=== PATIENT | male | born 1930 | race Caucasian/White ===

== ENCOUNTER 2016-11-27 19:49 | Emergency (ER) | payer MEDICARE, MEDICAID ==
--- NOTE | 2016-11-27 21:31 | Emergency Department Record ---
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 no loc MD Complaint: Fall Onset/Timin -: Minutes(s) Fall From: Standing When Fall Occurred: Just prior to arrival Fall Witnessed: No Place Fall Occurred: Other Loss of Consciousness: None Prolonged Down Time?: No Symptoms Prior to Fall: None Location: Face Context: Tripped/slipped - [place] Coma Scale Eye Response: (4) Open spontaneously Motor Response: (6) Obeys commands Verbal Response: (5) Oriented [place] Total: 15 - Related Data Allergies Allergy/AdvReac Type Severity Reaction Status Date / Time No Known Drug Allergies Allergy Verified 02/03/15 04:26 Travel Screening - Travel/Exposure Within Last 30 Days Have you traveled within the last 30 days?: No - Travel Symptoms Symptom Screening: None Review of Systems Reviewed: No additional complaints except as noted below Constitutional: Reports: As per HPI. Denies: Chills, Fever, Malaise, Night sweats, Weakness, Weight change Eyes: Reports: As per HPI. Denies: Eye discharge, Eye pain, Photophobia, Vision change ENT: Reports: As per HPI. Denies: Congestion, Dental pain, Ear pain, Epistaxis , Hearing loss, Throat pain Respiratory: Reports: As per HPI. Denies: Cough, Dyspnea, Hemoptysis, Stridor, Wheezes Cardiovascular: Reports: As per HPI. Denies: Arrhythmia, Chest pain, Dyspnea on exertion, Edema, Murmurs, Orthopnea, Palpitations, Paroxysmal nocturnal dyspnea, Rheumatic Fever, Syncope Endocrine: Reports: As per HPI. Denies: Fatigue, Heat or cold intolerance, Polydipsia, Polyuria Gastrointestinal: Reports: As per HPI. Denies: Abdominal pain, Constipation, Diarrhea, Hematemesis, Hematochezia, Melena, Nausea, Vomiting Genitourinary: Reports: As per HPI. Denies: Dysuria, Frequency, Hematuria, Incontinence, Retention, Testicular pain, Testicular mass, Urgency Musculoskeletal: Reports: As per HPI. Denies: Arthralgia, Back pain, Gout, Joint swelling, Myalgia, Neck pain Skin: Reports: As per HPI. Denies: Bruising, Change in color, Change in hair/ nails, Lesions, Pruritus, Rash Neurological: Reports: As per HPI. Denies: Abnormal gait, Confusion, Headache, Numbness, Paresthesias, Seizure, Tingling, Tremors, Vertigo, Weakness Psychiatric: Reports: As per HPI. Denies: Anxiety, Auditory hallucinations, Depression, Homicidal thoughts, Suicidal thoughts, Visual hallucinations Hematological/Lymphatic: Reports: As per HPI. Denies: Anemia, Blood Clots, Easy bleeding, Easy bruising, Swollen glands Past Medical History - SOCIAL HISTORY Smoking Status: Never smoker - RESPIRATORY Hx Respiratory Disorders: No - CARDIOVASCULAR Hx Cardio Disorders: No Hx Hypertension: Yes Comment:: afib - NEURO Hx Neuro Disorders: No Hx Parkinson's Disease: Yes Hx Seizures: No - GI Hx GI Disorders: No Hx Reflux: Yes - Hx Genitourinary Disorders: No Hx Bladder Problem: Yes (CA) - ENDOCRINE Hx Endocrine Disorders: No Hx Diabetes: No Hx Thyroid Disease: No - MUSCULOSKELETAL Hx Musculoskeletal Disorders: Yes Hx Arthritis: Yes Comment:: Parkinson's - PSYCH Hx Psych Problems: No - HEMATOLOGY/ONCOLOGY Hx Hematology/Oncology Disorders: Yes Hx Cancer: Yes (bladder) Family Medical History Any Significant Family History?: No Family Hx Comment (NOT TO BE USED IN PLACE OF ITEMS BELOW): unknown Physical Exam - General General Appearance: Alert, Oriented x3, Cooperative, Mild distress - Head Head exam: Normal inspection Head exam detail: Laceration Image of Face/Head: 1 - 3cm lac 2 - hematoma - Eye Eye exam: Normal appearance, PERRL, EOMI Pupils: Normal accommodation - ENT ENT exam: Normal exam, Mucous membranes moist, Normal external ear exam, Normal orophraynx, TM's normal bilaterally Ear exam: Normal external inspection. negative: External canal tenderness Nasal Exam: Normal inspection. negative: Discharge, Sinus tenderness Mouth exam: Normal external inspection, Tongue normal Teeth exam: Normal inspection. negative: Dental caries Throat exam: Normal inspection. negative: Tonsillar erythema, Tonsillar exudate - Neck Neck exam: Normal inspection, Full ROM. negative: Tenderness - Respiratory Respiratory exam: Normal lung sounds bilaterally. negative: Respiratory distress - Cardiovascular Cardiovascular Exam: Regular rate, Normal rhythm, Normal heart sounds - GI/Abdominal GI/Abdominal exam: Soft, Normal bowel sounds. negative: Tenderness - Rectal Rectal exam: Deferred - exam: Deferred - Extremities Extremities exam: Normal inspection, Full ROM, Normal capillary refill. negative: Tenderness - Back Back exam: Reports: Normal inspection, Full ROM. Denies: Muscle spasm, Rash noted, Tenderness - Neurological Neurological exam: Alert, CN II-XII intact, Normal gait, Oriented X3 - Psychiatric Psychiatric exam: Normal affect, Normal mood - Skin Skin exam: Dry, Intact, Normal color, Warm Course Vital Signs 11/27/16 19:53 Temperature 98.4 F Pulse Rate [ 57 L Pulse Ox Probe] Respiratory 20 Rate Blood Pressure 115/85 [Left Arm] Pulse Ox 98 Disposition Disposition: Discharge Clinical Impression: Laceration of face Qualifiers: Encounter type: initial encounter Qualified Code(s): S01.81XA - Laceration without foreign body of other part of head, initial encounter Head injury Qualifiers: Encounter type: initial encounter Qualified Code(s): S09.90XA - Unspecified injury of head, initial encounter Disposition: Home, Self-Care Condition: (1) Good Instructions: Laceration (ED), Head Injury (ED), Care For Your Stitches (ED), Facial Laceration (ED) Additional Instructions: follow up with family doctor. return sooner if worse. sutures out in 8-10 days Forms: Patient Portal Access Quality - Quality Measures Quality Measures: N/A - Blood Pressure Screening Does Patient Have Any of the Following: No Blood Pressure Classification: Pre-Hypertensive BP Reading Systolic Measurement: 115 Diastolic Measurement: 85 Screening for High Blood Pressure: < Pre-Hypertensive BP, F/U Documented > [ G8950] Pre-Hypertensive Follow-up Interventions: Follow-up with rescreen every year. Laceration - Head - Time Out Informed consent:: Informed consent obtained Confirmed first & last name, , procedure, correct site?: Yes - Location Location of laceration:: Upper Laceration located on:: Eye lid Length of laceration:: 3 Length of laceration:: cm - Clean and Prep Laceration cleaning method:: Cleansed, Copious Irrigation Laceration cleaning agent:: Normal Saline - Topical Anesthetic Lidocaine dose:: 2 mL Lidocaine used:: 1% - Procedural Detail Tissue detail:: Torn Foreign body in the wound?: No Undermining was preformed?: No Stent applied?: No [place] applied?: No (6 simple interrupted sutres w 5 ethilon)
--- NOTE | 2016-11-29 13:44 | CT SCAN REPORT ---
EXAM: CT SCAN HEAD WO CONTRAST HISTORY: FALL WITH TRAUMA TO LEFT FACE. TECHNIQUE: Routine noncontrast CT examination of the head. COMPARISON: CT head without contrast dated 02/03/15. FINDINGS: Moderate dilatation of the subarachnoid spaces. The ventricles remain at the upper limits of normal in size. No new area of abnormally increased or decreased attenuation is noted throughout the brain substance. No new abnormal extraaxial fluid collection is seen. No skull fracture is identified. The paranasal sinuses and mastoid air cells are grossly clear, although there is minimal mucosal thickening within the inferior aspects of the frontal sinuses and within the maxillary sinus floors. Post cataract surgery changes are noted bilaterally. The orbits as visualized are otherwise unremarkable. There is soft tissue swelling in the inferolateral left periorbital region adjacent to the anterior aspect of the zygomatic arch. IMPRESSION: 1. NO ACUTE INTRACRANIAL ABNORMALITY NOR SKULL FRACTURE IDENTIFIED. 2. MODERATE GENERALIZED ATROPHY. 3. MILD SOFT TISSUE SWELLING IN THE INFEROLATERAL LEFT PERIORBITAL REGION. 4. REDEMONSTRATION OF SOFT TISSUE SWELLING IN THE RIGHT OCCIPITAL REGION, STABLE. JOB NUMBER: [id number] [facility] [place]
== END 2016-11-27 21:50 | disposition home or self-care (01) ==
LOC: ER 19:49
DX: S01.112A Laceration without foreign body of left eyelid and periocular area, initial encounter (principal); S00.83XA Contusion of other part of head, initial encounter; I48.91 Unspecified atrial fibrillation; I10 Essential (primary) hypertension; G20 Parkinson's disease; W01.0XXA Fall on same level from slipping, tripping and stumbling without subsequent striking against object, initial encounter; Y92.238 Other place in hospital as the place of occurrence of the external cause; Z79.01 Long term (current) use of anticoagulants
CPT/HCPCS: 12013; 70450; 99283; 99284

== ENCOUNTER 2016-12-05 13:48 | Emergency (ER) | payer MEDICARE, MEDICAID ==
--- NOTE | 2016-12-05 14:15 | Emergency Department Record ---
History of Present Illness - General Chief Complaint: Suture removal Stated Complaint: REMOVE STITCHES Time Seen by Provider: 12/05/16 14:15 Mode of arrival: Ambulatory Limitations: No limitations - History of Present Illness Initial Comments: The patient has sutures placed 8 days ago in his L eyebrow. He is now here for suture removal. He denies any problems or issues. Complaint: Suture/staple removal Returns Today for: Staple/stitch removal Symptoms Since Prior Visit: No new symptoms Associated Symptoms: None - Related Data Allergies Allergy/AdvReac Type Severity Reaction Status Date / Time No Known Drug Allergies Allergy Verified 02/03/15 04:26 Travel Screening - Travel/Exposure Within Last 30 Days Have you traveled within the last 30 days?: No - Travel/Exposure Within Last Year Have you traveled outside the [place] in the last year?: No - Additonal Travel Details Have you been exposed to anyone with a communicable illness?: No - Travel Symptoms Symptom Screening: None Past Medical History - SOCIAL HISTORY Smoking Status: Never smoker Alcohol Use: None Drug Use: None - RESPIRATORY Hx Respiratory Disorders: No - CARDIOVASCULAR Hx Cardio Disorders: No Hx Hypertension: Yes Comment:: afib - NEURO Hx Neuro Disorders: No Hx Parkinson's Disease: Yes Hx Seizures: No - GI Hx GI Disorders: No Hx Reflux: Yes - Hx Genitourinary Disorders: No Hx Bladder Problem: Yes (CA) - ENDOCRINE Hx Endocrine Disorders: No Hx Diabetes: No Hx Thyroid Disease: No - MUSCULOSKELETAL Hx Musculoskeletal Disorders: Yes Hx Arthritis: Yes Comment:: Parkinson's - PSYCH Hx Psych Problems: No - HEMATOLOGY/ONCOLOGY Hx Hematology/Oncology Disorders: Yes Hx Cancer: Yes (bladder) Family Medical History Any Significant Family History?: No Family Hx Comment (NOT TO BE USED IN PLACE OF ITEMS BELOW): unknown Physical Exam - General General Appearance: Alert, Cooperative, No acute distress - Head Head exam: Normocephalic. negative: Normal inspection (The L eye brow lac is very well healed. There were no problems removing his 6 stitches.) Course Vital Signs 12/05/16 13:52 Temperature 97.3 F L Pulse Rate 60 Respiratory 16 Rate Blood Pressure 115/72 Pulse Ox 98 Disposition Disposition: Discharge Clinical Impression: Encounter for removal of sutures Disposition: Home, Self-Care Condition: (2) Stable Instructions: Stitches Removal (ED) Additional Instructions: Return to the ER for any problems. Forms: Patient Portal Access Time of Disposition: 14:16 Quality - Quality Measures Quality Measures: N/A - Blood Pressure Screening View Details: Yes Does Patient Have Any of the Following: No Blood Pressure Classification: Normal BP Reading Systolic Measurement: 115 Diastolic Measurement: 72 Screening for High Blood Pressure: < Normal BP, F/U Not Required > [G8748]
== END 2016-12-05 14:21 | disposition home or self-care (01) ==
LOC: ER 13:48
DX: Z48.02 Encounter for removal of sutures (principal)

== ENCOUNTER 2016-12-30 07:30 | Emergency (ER) | payer MEDICARE, MEDICAID ==
--- NOTE | 2016-12-30 08:12 | Emergency Department Record ---
History of Present Illness - General Chief Complaint: Fall Injury Time Seen by Provider: 12/30/16 07:38 Source: Patient, Family Mode of Arrival: Ambulatory - History of Present Illness Initial Comments: pt fell at [employer] 2 days ago onto cement hitting the r side of his face. no loc. he has fallen 3 times since then at home onto carpet. he is having pain in his head, face and r shoulder. Complaint: Fall -: Days(s) Fall From: Standing When Fall Occurred: Recurrent falls Fall Witnessed: Yes, by family Place Fall Occurred: Other Loss of Consciousness: None Prolonged Down Time?: No Symptoms Prior to Fall: None Location: Head, Face Location - Extremities: Right: Shoulder Severity scale (1-10): 4 Quality: Aching Context: History of frequent falls Associated Symptoms: Headache - [place] Coma Scale Eye Response: (4) Open spontaneously Motor Response: (6) Obeys commands Verbal Response: (5) Oriented [place] Total: 15 - Related Data Home Medications Medication Instructions Recorded Confirmed Last Taken Apixaban [Eliquis] 2.5 mg PO BID 12/30/16 12/30/16 12/30/16 Brimonidine Tartrate/Timolol 5 ml OP BID 12/30/16 12/30/16 Unknown [Combigan 0.2%-0.5% Eye Drops] Carbidopa/Levodopa [Sinemet Cr 1 each PO QID 12/30/16 12/30/16 12/30/16 50-200 Tablet] Dorzolamide HCl 10 ml OP BID 12/30/16 12/30/16 Unknown Fesoterodine Fumarate [Toviaz] 4 mg PO QHS 12/30/16 12/30/16 Unknown Fluoxetine HCl 10 mg PO DAILY 12/30/16 12/30/16 Unknown Hydrocodone/Acetaminophen [Scio 1 each PO ASDIR 12/30/16 12/30/16 12/30/16 5-325 Tablet] Latanoprost 0.005% Opth Chelsey 2.5 ml OP DAILY 12/30/16 12/30/16 Unknown [Xalatan] Omeprazole Magnesium [Prilosec Otc] 10 mg PO ASDIR 12/30/16 12/30/16 Unknown Temazepam [Restoril] 15 mg PO QHS 12/30/16 12/30/16 Unknown Tramadol HCl 50 mg PO Q6H 12/30/16 12/30/16 Unknown Previous Rx's Medication Instructions Recorded Metoprolol Tartrate 25 mg PO DAILY #14 tablet 12/30/16 Allergies Allergy/AdvReac Type Severity Reaction Status Date / Time No Known Drug Allergies Allergy Verified 12/30/16 07:52 Review of Systems Reviewed: No additional complaints except as noted below Constitutional: Reports: As per HPI. Denies: Chills, Fever, Malaise, Night sweats, Weakness, Weight change Eyes: Reports: As per HPI. Denies: Eye discharge, Eye pain, Photophobia, Vision change ENT: Reports: As per HPI. Denies: Congestion, Dental pain, Ear pain, Epistaxis , Hearing loss, Throat pain Respiratory: Reports: As per HPI. Denies: Cough, Dyspnea, Hemoptysis, Stridor, Wheezes Cardiovascular: Reports: As per HPI. Denies: Arrhythmia, Chest pain, Dyspnea on exertion, Edema, Murmurs, Orthopnea, Palpitations, Paroxysmal nocturnal dyspnea, Rheumatic Fever, Syncope Endocrine: Reports: As per HPI. Denies: Fatigue, Heat or cold intolerance, Polydipsia, Polyuria Gastrointestinal: Reports: As per HPI. Denies: Abdominal pain, Constipation, Diarrhea, Hematemesis, Hematochezia, Melena, Nausea, Vomiting Genitourinary: Reports: As per HPI. Denies: Dysuria, Frequency, Hematuria, Incontinence, Retention, Testicular pain, Testicular mass, Urgency Musculoskeletal: Reports: As per HPI. Denies: Arthralgia, Back pain, Gout, Joint swelling, Myalgia, Neck pain Skin: Reports: As per HPI. Denies: Bruising, Change in color, Change in hair/ nails, Lesions, Pruritus, Rash Neurological: Reports: As per HPI. Denies: Abnormal gait, Confusion, Headache, Numbness, Paresthesias, Seizure, Tingling, Tremors, Vertigo, Weakness Psychiatric: Reports: As per HPI. Denies: Anxiety, Auditory hallucinations, Depression, Homicidal thoughts, Suicidal thoughts, Visual hallucinations Hematological/Lymphatic: Reports: As per HPI. Denies: Anemia, Blood Clots, Easy bleeding, Easy bruising, Swollen glands Past Medical History - SOCIAL HISTORY Smoking Status: Never smoker Alcohol Use: None Drug Use: None - RESPIRATORY Hx Respiratory Disorders: No - CARDIOVASCULAR Hx Cardio Disorders: No Hx Hypertension: Yes Comment:: afib - NEURO Hx Neuro Disorders: Yes Hx Parkinson's Disease: Yes - GI Hx GI Disorders: No Hx Reflux: Yes - Hx Genitourinary Disorders: Yes Hx Bladder Problem: Yes (CA) - ENDOCRINE Hx Endocrine Disorders: No - MUSCULOSKELETAL Hx Musculoskeletal Disorders: Yes Hx Arthritis: Yes Comment:: Parkinson's - PSYCH Hx Psych Problems: No - HEMATOLOGY/ONCOLOGY Hx Hematology/Oncology Disorders: Yes Hx Cancer: Yes (bladder) Family Medical History Any Significant Family History?: No Family Hx Comment (NOT TO BE USED IN PLACE OF ITEMS BELOW): unknown Physical Exam - General General Appearance: Alert, Oriented x3, Cooperative, Mild distress - Head Head exam: Normal inspection Head exam detail: Contusion, General tenderness, Hematoma Image of Face/Head: 1 - ecchymosis, tenderness - Eye Eye exam: Normal appearance, PERRL, EOMI Pupils: Normal accommodation - ENT ENT exam: Normal exam, Mucous membranes moist, Normal external ear exam, Normal orophraynx Ear exam: Normal external inspection. negative: External canal tenderness Nasal Exam: Normal inspection. negative: Discharge, Sinus tenderness Mouth exam: Normal external inspection, Tongue normal Teeth exam: Other (teeth feel like they dont come together normally). negative : Dental caries Throat exam: Normal inspection. negative: Tonsillar erythema, Tonsillar exudate - Neck Neck exam: Normal inspection, Full ROM. negative: Tenderness - Respiratory Respiratory exam: Normal lung sounds bilaterally. negative: Respiratory distress - Cardiovascular Cardiovascular Exam: Regular rate, Normal rhythm, Normal heart sounds - GI/Abdominal GI/Abdominal exam: Soft, Normal bowel sounds. negative: Tenderness - Rectal Rectal exam: Deferred - exam: Deferred - Extremities Extremities exam: Full ROM, Normal capillary refill, Tenderness - Back Back exam: Reports: Normal inspection, Full ROM. Denies: Muscle spasm, Rash noted, Tenderness - Neurological Neurological exam: Alert, Normal gait, Oriented X3, Reflexes normal - Psychiatric Psychiatric exam: Normal affect, Normal mood - Skin Skin exam: Dry, Intact, Normal color, Warm Course Vital Signs 12/30/16 07:48 Temperature 98.8 F Pulse Rate [ 83 Pulse Ox Probe] Respiratory 24 Rate Blood Pressure 202/104 [Left Arm] Pulse Ox 98 - Reevaluation(s) Reevaluation #1: 12/30/16 10:48 d/w dr durham Disposition Disposition: Discharge Clinical Impression: Closed fracture involving temporomandibular joint Head injury Qualifiers: Encounter type: initial encounter Qualified Code(s): S09.90XA - Unspecified injury of head, initial encounter Fall Qualifiers: Encounter type: initial encounter Qualified Code(s): W19.XXXA - Unspecified fall, initial encounter Zygomatic arch fracture Qualifiers: Encounter type: initial encounter Fracture type: closed Laterality: right Qualified Code(s): S02.40EA - Zygomatic fracture, right side, initial encounter for closed fracture Hypertension Qualifiers: Hypertension type: essential hypertension Qualified Code(s): I10 - Essential ( primary) hypertension Disposition: Home, Self-Care Condition: (1) Good Instructions: Fall Prevention for Older Adults (ED), Jaw Fracture in Adults (ED ), Facial Fracture (ED), Head Injury (ED), Hypertension (ED) Additional Instructions: follow up with dr durham [phone] on . eat nonchew diet only. nothing by mouth after midnight on thursday night. ice to sore areas. sleep elevated. Prescriptions: Metoprolol Tartrate 25 mg PO DAILY #14 tablet Referrals: LADARIUS DURHAM D.D.S. [Dentist] - Forms: Patient Portal Access Quality - Quality Measures Quality Measures: N/A - Blood Pressure Screening Does Patient Have Any of the Following: No Blood Pressure Classification: Hypertensive Reading Systolic Measurement: 183 Diastolic Measurement: 107 Screening for High Blood Pressure: < First Hypertensive BP, F/U Documented > [ G8950] First Hypertensive Follow-up Interventions: Follow-up with rescreen GT 1 day and LT 4 weeks.
[2016-12-30] MEDS ORDERED: METOPROLOL TART 25 MG TABLET PO ONE (08:26)
--- NOTE | 2016-12-31 07:37 | RADIOLOGY REPORT ---
DATE: 12/30/2016 at 8:31 a.m. EXAM: RIGHT SHOULDER. HISTORY: The patient fell two days ago with right shoulder pain. TECHNIQUE: Three views of the right shoulder. COMPARISON: No prior right shoulder series. ENCOUNTER: Initial. FINDINGS: Mild degenerative arthritis at the glenohumeral joint. No fracture or dislocation of the right shoulder identified. IMPRESSION: MILD DEGENERATIVE ARTHRITIS. NO FRACTURE OF THE RIGHT SHOULDER EVIDENT. JOB NUMBER: [id number] [facility]TDD
--- NOTE | 2016-12-31 07:51 | CT SCAN REPORT ---
DATE: 12/30/2016 at 8:17 a.m. EXAM: EMERGENCY CT SCAN OF THE HEAD. HISTORY: The patient fell two days ago with right-sided headache and bruising. Left-hand dominant. TECHNIQUE: Axial CT scan of the head performed without intravenous contrast. COMPARISON: Head CT dated 11/27/2016. ENCOUNTER: Initial. FINDINGS: No definite acute intracranial hemorrhage identified. No focal mass effect or midline shift apparent. No definite acute infarct or intracranial mass lesion seen. Moderate generalized atrophy as before. Mild membrane thickening in the right maxillary antrum. No depressed calvarial fracture is evident. Slight reduction in soft tissue swelling in the scalp of the right occipital region compared with the prior study. The previously seen soft tissue swelling in the scalp and the left periorbital region has also regressed. IMPRESSION: 1. GENERALIZED ATROPHY BEFORE. 2. NO DEFINITE ACUTE INTRACRANIAL HEMORRHAGE OR FOCAL MASS EFFECT EVIDENT. 3. MILD MEMBRANE THICKENING OF THE RIGHT MAXILLARY SINUS. 4. REGRESSION IN PREVIOUSLY SEEN SCALP SOFT TISSUE SWELLING IN THE RIGHT OCCIPITAL REGION AND LEFT PERIORBITAL REGION. JOB NUMBER: [id number] [facility]TDD
--- NOTE | 2016-12-31 08:05 | CT SCAN REPORT ---
DATE: 12/30/2016 at 8:17 a.m. EXAM: EMERGENCY CT SCAN OF THE FACIAL BONES WITHOUT CONTRAST. HISTORY: The patient fell two days ago with right-sided headache and bruising in the right periorbital area. TECHNIQUE: Axial CT scan of the facial bones was performed without intravenous contrast. COMPARISON: No prior facial bone CT. ENCOUNTER: Initial. FINDINGS: There is some mild membrane thickening in the right maxillary sinus and minimal membrane thickening in the left maxillary sinus as well as in the ethmoids. Opacification of some left mastoid air cells is present. The right mastoids appear clear. There does appear to be an undisplaced fracture of the right zygomatic arch. There is questionably an undisplaced fracture posteriorly involving the anterior wall of the right temporomandibular joint in continuity with the zygomatic arch. There is also a cleft in the anterior wall of the maxillary sinus on the right, but with no appreciable air fluid level in the right maxillary sinus this would seem unlikely to be an acute axillary sinus fracture. The pterygoid plates appear intact bilaterally. Degenerative arthritis at the right temporomandibular joint. Advanced degenerative arthritis at the odontoid-anterior arch of C1 articulation and narrowing of the C2-3 interspace with degenerative change. IMPRESSION: 1. UNDISPLACED FRACTURE OF THE RIGHT ZYGOMATIC ARCH. POSSIBLE UNDISPLACED FRACTURE POSTERIORLY INVOLVING THE ANTERIOR WALL OF THE RIGHT TEMPOROMANDIBULAR JOINT. 2. CLEFT IN THE ANTERIOR WALL OF THE MAXILLARY SINUS NEAR SOME MEMBRANE THICKENING WOULD SEEM UNLIKELY TO BE AN ACUTE FRACTURE WITH NO AIR FLUID LEVEL IN THE RIGHT MAXILLARY SINUS, ONLY SOME MINOR MEMBRANE THICKENING. 3. OPACIFICATION OF SOME LEFT MASTOID AIR CELLS. JOB NUMBER: [id number] [facility]
== END 2016-12-30 11:00 | disposition home or self-care (01) ==
LOC: ER 07:30
DX: S02.40EA Zygomatic fracture, right side, initial encounter for closed fracture (principal); S02.69XA Fracture of mandible of other specified site, initial encounter for closed fracture; M25.511 Pain in right shoulder; R51 Headache; I48.91 Unspecified atrial fibrillation; I10 Essential (primary) hypertension; G20 Parkinson's disease; Z79.01 Long term (current) use of anticoagulants; W19.XXXA Unspecified fall, initial encounter; Z91.81 History of falling; Y92.009 Unspecified place in unspecified non-institutional (private) residence as the place of occurrence of the external cause
CPT/HCPCS: 70450; 70486; 99284

== ENCOUNTER 2017-02-22 18:36 | Inpatient (IN) | payer MEDICARE, MEDICAID ==
[2017-02-22] MEDS ORDERED: SODIUM CHLORIDE 0.9% 500 ML IV ONE (19:32)
[2017-02-22 19:38] LABS: URINE APPEARANCE CLEAR; URINE BILIRUBIN NEGATIVE (NEGATIVE); URINE BLOOD NEGATIVE (NEGATIVE); URINE COLOR STRAW; URINE GLUCOSE (UA) NEGATIVE (NEGATIVE); URINE KETONE NEGATIVE (NEGATIVE); URINE LEUKOCYTE ESTERASE NEGATIVE (NEGATIVE); URINE NITRITE NEGATIVE (NEGATIVE); URINE PROTEIN TRACE (NEGATIVE); URINE UROBILINOGEN >=8.0 E.U./dL (0.20 - 1.00)
--- NOTE | 2017-02-22 19:38 | Emergency Department Record ---
History of Present Illness - General Chief complaint: Weakness Stated complaint: WEAKNESS Time Seen by Provider: 02/22/17 19:32 Source: Patient, Family - History of Present Illness Initial comments: Unable to walk any longer with his cane, frequently falling at his home due to weakness and off balance. He has fallen 4-5 times this weekend alone, and he has "no balance, no coordination." Unable to get up even to use bathroom last night. He sees Dr. Bond at [facility], and Dr. Blanton neurologist who says he does not have parkinson's but has had silent strokes and brain atrophy. MD Complaint: Difficulty walking, Generalized weakness - Related Data Home Medications Medication Instructions Recorded Confirmed Last Taken Midodrine HCl 2.5 mg PO BID 02/22/17 02/22/17 02/22/17 Previous Rx's Medication Instructions Recorded Metoprolol Tartrate 25 mg PO DAILY #14 tablet 12/30/16 Allergies Allergy/AdvReac Type Severity Reaction Status Date / Time No Known Drug Allergies Allergy Verified 02/22/17 18:50 Review of Systems Reviewed: No additional complaints except as noted below Constitutional: Reports: As per HPI. Denies: Chills, Fever, Malaise, Night sweats, Weakness, Weight change Eyes: Reports: As per HPI. Denies: Eye discharge, Eye pain, Photophobia, Vision change ENT: Reports: As per HPI. Denies: Congestion, Dental pain, Ear pain, Epistaxis , Hearing loss, Throat pain Respiratory: Reports: As per HPI. Denies: Cough, Dyspnea, Hemoptysis, Stridor, Wheezes Cardiovascular: Reports: As per HPI. Denies: Arrhythmia, Chest pain, Dyspnea on exertion, Edema, Murmurs, Orthopnea, Palpitations, Paroxysmal nocturnal dyspnea, Rheumatic Fever, Syncope Endocrine: Reports: As per HPI. Denies: Fatigue, Heat or cold intolerance, Polydipsia, Polyuria Gastrointestinal: Reports: As per HPI. Denies: Abdominal pain, Constipation, Diarrhea, Hematemesis, Hematochezia, Melena, Nausea, Vomiting Genitourinary: Reports: As per HPI. Denies: Dysuria, Frequency, Hematuria, Incontinence, Retention, Testicular pain, Testicular mass, Urgency Musculoskeletal: Reports: As per HPI. Denies: Arthralgia, Back pain, Gout, Joint swelling, Myalgia, Neck pain Skin: Reports: As per HPI. Denies: Bruising, Change in color, Change in hair/ nails, Lesions, Pruritus, Rash Neurological: Reports: As per HPI. Denies: Abnormal gait, Confusion, Headache, Numbness, Paresthesias, Seizure, Tingling, Tremors, Vertigo, Weakness Psychiatric: Reports: As per HPI. Denies: Anxiety, Auditory hallucinations, Depression, Homicidal thoughts, Suicidal thoughts, Visual hallucinations Hematological/Lymphatic: Reports: As per HPI. Denies: Anemia, Blood Clots, Easy bleeding, Easy bruising, Swollen glands Past Medical History - SOCIAL HISTORY Smoking Status: Never smoker Drug Use: None - RESPIRATORY Hx Respiratory Disorders: No - CARDIOVASCULAR Hx Cardio Disorders: No Hx Hypertension: Yes Comment:: afib - NEURO Hx Neuro Disorders: Yes Hx Parkinson's Disease: Yes - GI Hx GI Disorders: No Hx Reflux: Yes - Hx Genitourinary Disorders: Yes Hx Bladder Problem: Yes (CA) - ENDOCRINE Hx Endocrine Disorders: No - MUSCULOSKELETAL Hx Musculoskeletal Disorders: Yes Hx Arthritis: Yes Comment:: Parkinson's - PSYCH Hx Psych Problems: No - HEMATOLOGY/ONCOLOGY Hx Hematology/Oncology Disorders: Yes Hx Cancer: Yes (bladder) Family Medical History Family Hx Comment (NOT TO BE USED IN PLACE OF ITEMS BELOW): unknown Physical Exam - General General Appearance: Alert, Oriented x3, Cooperative, No acute distress - Head Head exam: Normal inspection, Other (old contusions barely noticeable ) - Eye Eye exam: Normal appearance, PERRL Pupils: Normal accommodation - ENT ENT exam: Normal exam, Mucous membranes moist, Normal external ear exam, Normal orophraynx, TM's normal bilaterally Ear exam: Normal external inspection. negative: External canal tenderness Nasal Exam: Normal inspection. negative: Discharge, Sinus tenderness Mouth exam: Normal external inspection, Tongue normal Teeth exam: Normal inspection. negative: Dental caries Throat exam: Normal inspection. negative: Tonsillar erythema, Tonsillar exudate - Neck Neck exam: Normal inspection, Full ROM. negative: Tenderness - Respiratory Respiratory exam: Normal lung sounds bilaterally. negative: Respiratory distress - Cardiovascular Cardiovascular Exam: Regular rate, Normal rhythm, Normal heart sounds - GI/Abdominal GI/Abdominal exam: Soft, Normal bowel sounds, Other. negative: Tenderness - Rectal Rectal exam: Deferred - exam: Deferred - Extremities Extremities exam: Normal inspection, Full ROM, Normal capillary refill, Pedal edema, Other (No bony tenderness to ribs, chest pelvis, hips, lower extremities) . negative: Calf tenderness, Tenderness - Back Back exam: Reports: Normal inspection, Full ROM. Denies: Muscle spasm, Rash noted, Tenderness - Neurological Neurological exam: Alert, CN II-XII intact, Normal gait, Oriented X3, Reflexes normal. negative: Motor sensory deficit - Psychiatric Psychiatric exam: Normal affect, Normal mood - Skin Skin exam: Abrasion (left anterior shoulder, but ROM intact, without bony tenderness), Dry, Intact, Normal color, Warm Course Vital Signs 02/22/17 19:08 Temperature 98.4 F Pulse Rate [ 64 Pulse Ox Probe] Respiratory 20 Rate Blood Pressure 143/110 [Left Arm] Pulse Ox 99 - Reevaluation(s) Reevaluation #1: Patient was taken to the bathroom and needed full assistance with 2 staff members. He was unable to stand on his own, needed assistance for boh strength and balance. Discussed with patient and family who are in agreement to be admitted for pneumonia, generalized weakness and inability to ambulate. 02/22/17 22:59 02/22/17 23:05 Reevaluation #2: Son reports that he has a new BP medicine called meditrin which he had been taking TID. The BP normalized to 133/65 and with his falling he decreased it to BID which has worked better. The son states he was up all night with his father attempting to get him to the bathroom unsuccessfully multiple times. 02/22/17 23:06 Reevaluation #3: Patient has 3 eye drop medication which he takes for his glaucoma. He was instructed to give his own eye medication while in this facility. 02/22/17 23:08 Medical Decision Making - Management Options MDM Management: Additional Work-up Planned (e.g. ADM/Transfer/OP Study) (Admit to Dr. Bond/Kelsea, P.AEstrella) - Data Complexity MDM Data: Labs Ordered and/or Reviewed, X-Ray Ordered and/or Reviewed (CXR: LLL infiltrate, otherwise negative per radiologist.) - Lab Data Result diagrams: 02/22/17 19:40 02/22/17 19:40 Disposition Disposition: Admit Clinical Impression: Weakness, Physical deconditioning Pneumonia Qualifiers: Pneumonia type: due to unspecified organism Laterality: left Lung location: lower lobe of lung Qualified Code(s): J18.1 - Lobar pneumonia, unspecified organism Disposition: Still a Patient at [facility] Decision to Admit: Admit from ER Decision to Admit Date: 02/22/17 Decision to Admit Time: 23:03 Accepting Physician: Dr. Bond/ Geno Enamorado Time Discussed w/Accepting Physician: 06:30 Condition: (1) Good Forms: Patient Portal Access Quality - Quality Measures Quality Measures: N/A - Blood Pressure Screening Does Patient Have Any of the Following: No, Active Dx of HTN Blood Pressure Classification: Hypertensive Reading Systolic Measurement: 183 Diastolic Measurement: 117 Screening for High Blood Pressure: Patient Exclusion, Hx of HTN [G9744]
[2017-02-22 19:51] LABS: BASO % 0.3 % (0-6); EOS % 0.4 % (0-6); GRAN % 63.2 % (47-80); HEMATOCRIT 43.7 % (42.0-52.0); HEMOGLOBIN 14.9 gm/dl (14.0-18.0); LYMPH % 24.3 % (16-45); MEAN CELL VOLUME 91.4 fl (81-97); MEAN CORPUSCULAR HEMOGLOBIN 31.2 pg (27-33); MEAN CORPUSCULAR HGB CONC 34.1 g/dl (32-36); MEAN PLATELET VOLUME 10.7 fl (7.4-10.4); MONO % 11.8 % (0-9); PLATELET COUNT 163 K/uL (130-400); RED BLOOD COUNT 4.78 M/uL (4.40-5.70); RED CELL DISTRIBUTION WIDTH 14.2 % (11.5-14.5); WHITE BLOOD COUNT W/O DIFF 6.8 K/uL (4.2-12.2)
[2017-02-22 20:02] LABS: BLOOD UREA NITROGEN 18 mg/dL (8-23); CREATININE 0.8 mg/dL (0.7-1.2); EST GLOMERULAR FILTRATION RATE > 60 mL/min; INR 1.2; TOTAL PROTEIN 7.4 g/dL (6.6-8.7)
[2017-02-22 20:04] LABS: GLUCOSE,RANDOM 124 mg/dL (74-109)
[2017-02-22 20:07] LABS: ALB/GLOB RATIO 1.3 (1.1-1.8); ALBUMIN 4.2 g/dL (4.0-5.0); ALKALINE PHOSPHATASE 90 U/L (40-129); ALT/SGPT 8 U/L (<41); AST/SGOT 14 U/L (10.0-50.0)
[2017-02-22] MEDS ORDERED: CEFTRIAXONE SODIUM 1 GM in 0.9 % SODIUM CHLORIDE 100ML 100 ML IVPB ONE (22:55)
[2017-02-22] MEDS ORDERED: AZITHROMYCIN 500 MG TABLET PO ONE (22:55)
[2017-02-22] MEDS ORDERED: HYDROCODONE/APAP 5/325MG TABLET PO SCH (23:15)
[2017-02-22] MEDS ORDERED: OMEPRAZOLE MAGNESIUM 10 MG PO SCH (23:15)
[2017-02-23] MEDS ORDERED: ZINC OXIDE 28.35 GM TUBE TOP PRN (00:56)
[2017-02-23] MEDS ORDERED: AZITHROMYCIN 500 MG TABLET PO SCH (01:00)
[2017-02-23] MEDS ORDERED: HYDROCODONE/APAP 5/325MG TABLET PO SCH (01:15)
[2017-02-23] MEDS: TRAMADOL HCL 50 MG TABLET PO SCH ×3 (01:18→13:14)
--- NOTE | 2017-02-23 07:57 | RADIOLOGY REPORT ---
EXAM: CHEST HISTORY: WEAKNESS. TECHNIQUE: Two views of the chest were obtained. Comparison: 02/05/16. FINDINGS: The heart is not enlarged. No mediastinal mass. Small infiltrate at the left lung base cannot be excluded. The lungs otherwise appear clear. No vascular congestion. IMPRESSION: 1. POSSIBLE SMALL INFILTRATE AT THE LEFT LUNG BASE. 2. OTHERWISE UNREMARKABLE CHEST X-RAY. JOB NUMBER: [id number] MTDD
--- NOTE | 2017-02-23 08:00 | CT SCAN REPORT ---
EXAM: HEAD CT HISTORY: GENERALIZED WEAKNESS AND VERTIGO. TECHNIQUE: Noncontrast head CT was obtained. Comparison: 12/30/16. FINDINGS: There is prominence of the ventricles and subarachnoid spaces compatible with atrophy. There is no mass or mass effect. No intra or extraaxial hemorrhage seen. No CT evidence for large acute territorial infarct. No evidence of a hyperdense MCA sign. No fracture or acute osseous abnormality. The visualized sinuses are clear. IMPRESSION: 1. GENERALIZED ATROPHY SIMILAR TO THE PREVIOUS STUDY. 2. NO MASS, HEMORRHAGE, OR ACUTE INTRACRANIAL PROCESS. JOB NUMBER: [id number] [facility]
--- NOTE | 2017-02-23 09:47 | Rehab Evaluation ---
Patient Information - Patient Information Diagnosis: pneumonia, generalized weakness, inability to ambulate, chronic A-fib Ordered Treatment: OT Evaluate and Treat Status: Initial Evaluation Surgery: No History: Detail (Pt has had several falls over the last month.) Premorbid Status: Detail (Pt lives with and adult son in a 2 story house with basement. He reports 8-10 steps and víctor handrailings at the entrance from the basement garage and 3 steps at front entrance which is a long distance from the driveway. His bedroom and bathroom are on the second floor. In the upper level bathroom is a walk in shower with grab bar and standard height toilet with grab bar, on the lower level is a tub/shower combination. His completes laundry and they have a housekeeper/laundry assistant 1 x per week, son completes all driving and assists pt with showering, dressing, self care activities. He has a shower seat and wheeled walker but usually walks without an assistive device. ) Social History: Detail (Supportive and son.) Precautions: [place], Fall - Time With Patient Total Time Spent With Patient (Min): 50 Treatment Procedures: Detail (OT low complexity) Subjective Information - Subjective Information Per Patient, Other (Son and present for part of evaluation.) Objective Data - Pain Pain Present: No - Mental Status Patient Orientation: Oriented x3 - Visual Perception Appears within normal limits for therapeutic activities (Pt wears glasses.) - ROM Not within normal limits (Víctor shoulder flexion limited to approx. 80 degrees, víctor elbow, wrist and hand AROM functional.) - Strength/Tone Not within normal limits (Víctor shoulder strength 3+/5 within AROM limitations, víctor elbow strength 4/5, víctor fitness and wellness coordinator 4/5) - Coordination Appears within normal limits for therapeutic activities - Bed Mobility Dependent (Mod assist x 2 for sit to supine) - Transfers Needs Assist (Mod assist x 2 for sit to stand from recliner chair and commode seat.) - Balance Balance Sitting: Good Balance Standing: Poor - Sensation Intact - Gait Detail (Pt able to amb short distances in room with 2 wheeled walker and min assist x 1-2 to maintain balance and manuever walker.) - ADL's/IADL's Detail (Total assist for toileting, doffing/donning briefs and slippers. Other ADLs not formally assessed due to patient fatigue.) Therapy Assessment - Therapy Assessment Detail (Pt presents with significant impairment in mobility, self cares, endurance and UE strength.) Problem List - Problem List Occupational Therapy Problem List: Detail (1. Decreased Ind with functional mobility needed for safe ADLs. 2. Decreased UE function needed for safe and Ind ADLs/functional mobility. 3. Decreased Ind with self care activities.) Goals - Goals Occupational Therapy Goals: 1. Pt will be Ind with sit to stand from chair, edge of bed and commode heights. 2. Pt will be Ind with grooming/hygiene activities. 3. Pt will require min assist or better for showering in sitting. Prognosis - Prognosis Moderate Plan - Plan Occupational Therapy Plan: OT 2-4 days per week to address self cares, functional mobility, UE function and overall endurance to allow return home with family.
[2017-02-23] MEDS: COMBIGAN OPTH SCH ×2 (10:15→23:26)
[2017-02-23] MEDS: APIXABAN 2.5MG TABLET PO SCH ×2 (10:16→23:25)
[2017-02-23] MEDS: METOPROLOL TART 50 MG TABLET PO SCH (10:16)
[2017-02-23] MEDS: FLUOXETINE HCL 10 MG CAPSULE PO SCH (10:17)
[2017-02-23] MEDS: DORZOLAMIDE 2% OPTH SCH ×2 (10:20→23:25)
[2017-02-23] MEDS: OPTH OPTH SCH ×3 (10:20→23:31)
[2017-02-23] MEDS: BRIMONIDINE OPTH OPTH SCH ×2 (10:30→23:25)
--- NOTE | 2017-02-23 11:36 | Rehab Evaluation ---
Patient Information - Patient Information Diagnosis: pneumonia, generalized weakness, inability to ambulate, chronic A-fib Ordered Treatment: PT Evaluate and Treat Status: Initial Evaluation Surgery: No History: Detail (Pt has had several falls over the last month.) Premorbid Status: Detail (Pt lives with and adult son in a 2 story house with basement. He reports 8-10 steps and bill handrailings at the entrance from the garage. Another enterance has less steps but is a long walk from the garage. The patient's bedroom is on the second floor, with a bathroom with a walk in shower with grab bars and a tub seat that is available but not usually used. The upstairs bathroom also has a standard toilet and grab bars. The patient's was completing laundry and cooking and a historiography teacher was completing other chores once a week. The patient's son stated he was assisting the patient with bed mobility, transfers and ambulation. The patient's son also reports that the patient's home is not acessible to a walker.) Precautions: [place], Fall - Time With Patient Total Time Spent With Patient (Min): 30 Treatment Procedures: Detail (Initial Evaluation) Subjective Information - Subjective Information Per Patient (The patient complained of fatigue. The patient had no complaints of pain.) Objective Data - Mental Status Patient Orientation: Oriented x3 (The patient at times has difficulty following simple commands concerning moving.) - ROM Within normal limits (The patient's LE AROM is WFL.) - Strength/Tone Not within normal limits (The patient had difficulty understanding the use of resistance for strength testing. LE strength was generally 4 to 4-/5.) - Bed Mobility Needs Assist (The patient required maximal PA of 1 to lift LE's into bed, moderate PA of 1 for upper body.) - Transfers Needs Assist (moderate PA of 1 with sit to stand.) - Balance Balance Sitting: Fair (The patient was able to sit unsupported.) Balance Standing: Poor (The patient required support to stand. The patient often leans back with sit to stand.) - Gait Detail (The patient ambulated with hand holds of 2, 11 feet x 1 and with 2 wheeled walker 11 feet x 1 with CG of 1. The patient requires maximal verbal cues for turning legs and backing up. The patient's gait pattern was characterized by small shuffling steps and flexed posturing of hips, knees and trunk.) Therapy Assessment - Therapy Assessment Detail (The patient required moderate assistance with mobility and decreased balance. The patient had some difficulty following simple commands. Feel the patient would benefit from the use of a walker for mobility. ( The patient was not using an assistive device at home). The patient would benefit from short term PT at a subacute rehab to improve functional level. PT is concerned with patient returning to his home environment due to inacessibility of walker and numerous stairs. If patient is not returning home a [facility] care facility where the patient can recieve OT/PT would be a good option.) Problem List - Problem List Physical Therapy Problem List: Detail (1) Assistance with bed mobility and transfers 2) Assistance with ambulation and numerous gait deviations 3) Decreased balance in standing 4) Decreased ability to complete prolonged physical activity) Goals - Goals Physical Therapy Goals: 1) The patient will ambulate with assistive device with CG household distances (30 to 50 feet). 2) Evaluate the patient using objective balance test. 3) The patient will complete bed mobility with minimal to moderate assist. 4) The patient will acheive sit to stand transfer with CG/ supervision for safety. 5) The patient will tolerate 30 minutes of physical activity Prognosis - Prognosis Moderate Plan - Plan Physical Therapy Plan: PT daily for gait training, transfer training, bed mobility, LE strengthening and balance exercises.
[2017-02-23] MEDS: ACETAMINOPHEN 500 MG TABLET PO PRN (15:20)
[2017-02-23] MEDS ORDERED: HYDROCODONE/APAP 5/325MG TABLET PO PRN ×3 (15:27→18:55)
[2017-02-23 16:37] LABS: BASO % 0.1 % (0-6); EOS % 1.1 % (0-6); GRAN % 66.6 % (47-80); HEMATOCRIT 42.7 % (42.0-52.0); HEMOGLOBIN 14.5 gm/dl (14.0-18.0); LYMPH % 20.8 % (16-45); MEAN CELL VOLUME 91.4 fl (81-97); MEAN PLATELET VOLUME 10.3 fl (7.4-10.4); MONO % 11.4 % (0-9); PLATELET COUNT 171 K/uL (130-400); RED BLOOD COUNT 4.67 M/uL (4.40-5.70); RED CELL DISTRIBUTION WIDTH 14.2 % (11.5-14.5)
[2017-02-23 16:50] LABS: BLOOD UREA NITROGEN 24 mg/dL (8-23); CREATININE 0.8 mg/dL (0.7-1.2); EST GLOMERULAR FILTRATION RATE > 60 mL/min
[2017-02-23 16:51] LABS: TOTAL PROTEIN 7.1 g/dL (6.6-8.7)
[2017-02-23 16:53] LABS: GLUCOSE,RANDOM 153 mg/dL (74-109)
[2017-02-23 16:55] LABS: ALT/SGPT 8 U/L (<41)
[2017-02-23 16:56] LABS: ALB/GLOB RATIO 1.2 (1.1-1.8); ALBUMIN 3.9 g/dL (4.0-5.0); ALKALINE PHOSPHATASE 87 U/L (40-129); AST/SGOT 12 U/L (10.0-50.0)
--- NOTE | 2017-02-23 17:08 | History & Physical ---
History of Present Illness - Date of Service Date of Service for History & Physical: 02/23/17 - History of Present Illness Admitting Diagnosis: Pneumonia, left lower lobe; generalized weakness, inability to ambulate; chronic atrial fibrillation History of Present Illness: 86yo male with CC of generalized weakness. He has history of chronic afib, HTN, hx of CVA, GERD, IBS, bladder cancer in remission, depression. Patient presented to the ED with inability to ambulate alone and frequently falling at his home due to weakness and balance issues. He has fallen 4-5 times this weekend alone, and he has "no balance, no coordination." Unable to get up even to use bathroom last night. This has been going on for months but got progressively worse this weekend. Son is his home care companion so decided to bring him in to the ED While in the ED, patient had EKG showing chronic afib. He had CT head that showed generalized atrophy without acute findings. He also had a CXR done that showed probable left lower lobe infiltrate. CBC was unremarkable. CMP showed slightly elevated tbili at 1.3. UA negative for infection. Patient was too weak to ambulate on his own and was found to be a max assist with nursing. He was started on IV rocephin and azithromycin and admitted for LLL pneumonia and generalized weakness with inability to ambulate. 02/23/17- Patient states he is feeling ok today. He is still having significant weakness in both legs that he says is unchanged. He was able to get up with PT/ OT today and they feel he would do well with continued subacute therapy. He denies cough, chest pain or shortness of breath currently. He denies any localizing areas or weakness or numbness/tingling. He was originally diagnosed with Parkinson's by his family physician many years ago but more recently went to see Dr. Blanton, neurology, who feels his symptoms are actually related to prior CVA's and subsequent atrophy of the brain. He is on eliquis for VTE prophylaxis with his afib. pcp: Dr. Bond neuro: Dr. Blanton Travel Screening - Travel/Exposure Within Last 30 Days Have you traveled within the last 30 days?: No - Travel/Exposure Within Last Year Have you traveled outside the [place] in the last year?: No - Additonal Travel Details Have you been exposed to anyone with a communicable illness?: No - Travel Symptoms Symptom Screening: Weakness Review of Systems Constitutional: Reports: As per HPI. Denies: Chills, Fever, Malaise, Night sweats, Weakness, Weight change Eyes: Reports: As per HPI. Denies: Eye discharge, Eye pain, Photophobia, Vision change ENT: Reports: As per HPI. Denies: Congestion, Dental pain, Ear pain, Epistaxis , Hearing loss, Throat pain Respiratory: Reports: As per HPI. Denies: Cough, Dyspnea, Hemoptysis, Stridor, Wheezes Cardiovascular: Reports: As per HPI. Denies: Arrhythmia, Chest pain, Dyspnea on exertion, Edema, Murmurs, Orthopnea, Palpitations, Paroxysmal nocturnal dyspnea, Rheumatic Fever, Syncope Endocrine: Reports: As per HPI. Denies: Fatigue, Heat or cold intolerance, Polydipsia, Polyuria Gastrointestinal: Reports: As per HPI. Denies: Abdominal pain, Constipation, Diarrhea, Hematemesis, Hematochezia, Melena, Nausea, Vomiting Genitourinary: Reports: As per HPI. Denies: Dysuria, Frequency, Hematuria, Incontinence, Retention, Testicular pain, Testicular mass, Urgency Musculoskeletal: Reports: As per HPI. Denies: Arthralgia, Back pain, Gout, Joint swelling, Myalgia, Neck pain Skin: Reports: As per HPI. Denies: Bruising, Change in color, Change in hair/ nails, Lesions, Pruritus, Rash Neurological: Reports: As per HPI. Denies: Abnormal gait, Confusion, Headache, Numbness, Paresthesias, Seizure, Tingling, Tremors, Vertigo, Weakness Psychiatric: Reports: As per HPI. Denies: Anxiety, Auditory hallucinations, Depression, Homicidal thoughts, Suicidal thoughts, Visual hallucinations Hematological/Lymphatic: Reports: As per HPI. Denies: Anemia, Blood Clots, Easy bleeding, Easy bruising, Swollen glands Past Medical History - SOCIAL HISTORY Smoking Status: Never smoker Alcohol Use: None Drug Use: None - RESPIRATORY Hx Respiratory Disorders: No - CARDIOVASCULAR Hx Cardio Disorders: No Hx Abnormal EKG: (Afib hx) Hx Chest Pain: Yes Hx Hypertension: Yes Comment:: placed on midodrine for irregular blood pressure on 01/30/17 - NEURO Hx Neuro Disorders: Yes Hx Parkinson's Disease: Yes (son states neurologist does not believe patient has parkinson's) Comment:: son states neurologist believes poor balance is residual from silent stroke - GI Hx GI Disorders: No Hx Reflux: Yes Hx Irritable Bowel: Yes - Hx Genitourinary Disorders: Yes Hx Bladder Problem: Yes (CA) Comment:: frequent urination, urine incontinence - ENDOCRINE Hx Endocrine Disorders: No Hx Diabetes: No Hx Thyroid Disease: No - MUSCULOSKELETAL Hx Musculoskeletal Disorders: Yes Hx Arthritis: Yes Comment:: hx right jaw fracture s/p fall 01/01/17 - PSYCH Hx Psych Problems: Yes Hx Depression: Yes - HEMATOLOGY/ONCOLOGY Hx Hematology/Oncology Disorders: Yes Hx Cancer: Yes (bladder) Family Medical History Any Significant Family History?: No Family Hx Comment (NOT TO BE USED IN PLACE OF ITEMS BELOW): unknown H&P Meds/Allergies - Allergies Allergies: Allergies Allergy/AdvReac Type Severity Reaction Status Date / Time No Known Drug Allergies Allergy Verified 02/22/17 18:50 - Home Medications Home Medications Medication Instructions Recorded Confirmed Last Taken Midodrine HCl 2.5 mg PO BID 02/22/17 02/22/17 02/22/17 Previous Rx's Medication Instructions Recorded Metoprolol Tartrate 25 mg PO DAILY #14 tablet 12/30/16 - Active Medications Active Medications: Current Medications Acetaminophen (Tylenol 500mg Tab) 500 mg PO Q6H PRN PRN Reason: PAIN/TEMP Last Admin: 02/23/17 15:20 Dose: 500 mg Hydrocodone Bitart/Acetaminophen ([place] 5mg/325mg) 0.5 each PO Q4H PRN PRN Reason: Pain - General Last Admin: 02/23/17 15:36 Dose: 0.5 each Apixaban (Eliquis) 2.5 mg PO BID [facility] Last Admin: 02/23/17 10:16 Dose: 2.5 mg Azithromycin (Zithromax) 500 mg PO QHS [facility] Fluoxetine HCl (Prozac) 10 mg PO DAILY [facility] Last Admin: 02/23/17 10:17 Dose: 10 mg Ceftriaxone Sodium 1 gm/ (Sodium Chloride) 100 mls @ 100 mls/hr IVPB Q24H [facility] Stop: 02/28/17 22:01 Metoprolol Tartrate (Lopressor) 25 mg PO DAILY [facility] Last Admin: 02/23/17 10:16 Dose: 25 mg Patient Own Med: (Combigan 0.2%-0.5%) 1 each OPTH BID [facility] Last Admin: 02/23/17 10:15 Dose: 1 each Patient Own Med: Dorzolamide 2% Opth Drops 1 each OPTH BID [facility] Last Admin: 02/23/17 10:20 Dose: 1 each Patient Own Med: Festerodine 4 Mg Cap (Toviaz) 1 each PO QHS [facility] Patient Own Med: Latanaprost 0.005% Opth Drops 1 each OPTH QHS [facility] Patient Own Med: Brimonidine Opth Drops 1 each OPTH BID [facility] Last Admin: 02/23/17 10:30 Dose: Not Given Temazepam (Restoril) 15 mg PO QHS PRN PRN Reason: INSOMNIA Zinc Oxide (Desitin) 28.35 gm TOP BID PRN PRN Reason: RASH Physical Exam - Vital Signs Vital Signs: Vital Signs - Last 24 Hrs Temp Pulse Resp BP BP Pulse Ox 02/23/17 13:25 97.4 F L 103/65 02/23/17 10:46 97.4 F L 60 16 103/65 97 02/23/17 03:46 98.0 F 75 18 129/77 95 - General General Appearance: Alert, Oriented x3, Cooperative, No acute distress - Head Head exam: Atraumatic, Normal inspection - Eye Eye exam: Normal appearance, PERRL Pupils: Normal accommodation - ENT ENT exam: Normal exam, Mucous membranes moist, Normal external ear exam, Normal orophraynx, TM's normal bilaterally Ear exam: Normal external inspection. negative: External canal tenderness Nasal Exam: Normal inspection. negative: Discharge, Sinus tenderness Mouth exam: Normal external inspection, Tongue normal Teeth exam: Normal inspection. negative: Dental caries Throat exam: Normal inspection. negative: Tonsillar erythema, Tonsillar exudate - Neck Neck exam: Normal inspection, Full ROM. negative: Tenderness - Respiratory Respiratory exam: Rales (crackles in bilateral bases). negative: Respiratory distress - Cardiovascular Cardiovascular Exam: Normal rhythm, Normal heart sounds, Irregular rhythm ( chronic afib) - GI/Abdominal GI/Abdominal exam: Soft, Normal bowel sounds. negative: Tenderness - Rectal Rectal exam: Deferred - exam: Deferred - Extremities Extremities exam: Normal inspection, Full ROM, Normal capillary refill, Pedal edema, Other (No bony tenderness to ribs, chest pelvis, hips, lower extremities) . negative: Calf tenderness, Tenderness - Back Back exam: Reports: Normal inspection, Full ROM. Denies: Muscle spasm, Rash noted, Tenderness - Neurological Neurological exam: Alert, CN II-XII intact, Normal gait, Oriented X3, Reflexes normal. negative: Motor sensory deficit - Psychiatric Psychiatric exam: Normal affect, Normal mood - Skin Skin exam: Abrasion (left anterior shoulder, but ROM intact, without bony tenderness), Dry, Intact, Normal color, Warm Results - Labs Result Diagrams: 02/23/17 16:25 02/22/17 19:40 Labs Last 24 Hours: Laboratory Results - last 24 hr 02/23/17 16:25 WBC 8.0 RBC 4.67 Hgb 14.5 Hct 42.7 MCV 91.4 MCH 31.0 MCHC 34.0 RDW 14.2 Plt Count 171 MPV 10.3 Gran % 66.6 Lymphocytes % 20.8 Monocytes % 11.4 H Eosinophils % 1.1 Basophils % 0.1 - Imaging and Cardiology Chest x-ray Status: Report reviewed (LLL infiltrate) VTE H&P Assessment - Risk for VTE Risk for VTE: Yes Risk Level: High Risk Assessment Date: 02/23/17 Risk Assessment Time: 17:12 VTE Orders Placed or Will Be Placed: Yes Plan - Inpatient Certification Inpatient Certification: Admit to inpatient care: Based on my medical assessment, after consideration of patient's risk factors (age, co-morbidities and patient presenting symptoms and acuity), I expect that this patient will remain in the hospital greater than or equal to two midnights and that the services needed warrant inpatient care because: Patient Risk Factors: [age, generalized weakness with inability to ambulate, pneumonia ] Estimated length of stay: [72-96H] The patient may reasonably be expected to be discharged or transferred to a hospital within 96 hours after admission to [facility]. Services needed: [IV antibiotics, respiratory therapy, PT/OT] Post hospital care (if known): [subacute rehab] I certify that my determination is in accordance with my understanding of Medicare requirements for reasonable and necessary inpatient services. 02/23/17 17:12 - Detailed Diagnosis and Plan (1) Pneumonia Current Visit: Yes Status: Acute Qualifiers: Pneumonia type: due to unspecified organism Laterality: left Lung location: lower lobe of lung Qualified Code(s): J18.1 - Lobar pneumonia, unspecified organism Base Code: J18.9 - PNEUMONIA, UNSPECIFIED ORGANISM Comment: 02/23/17- CXR showing probable left lower lobe infiltrate. Patient reports no cough or shortness of breath but has had increased weakness and some chills. appetite remains good and he is not requiring supplemental oxygen -continue rocephin 1gm IV q24h -continue azithromycin 500mg PO daily -duoneb q4H prn shortness of breath -vitals q8H -repeat labs qam (2) Physical deconditioning Current Visit: Yes Status: Acute Base Code: R53.81 - OTHER MALAISE Comment : 02/23/17- acute on chronic worsening of generalized weakness. Son is primary caregiver for patient and patient's who has dementia. Son has been having some difficulty taking care of his father due to his own medical condition. Says he has really noticed increasing weakness in the past week and over the course of this year patient has had at least 50 falls. -PT/OT evaluated patient and feel he would benefit from inpatient rehab followed by subacute stay and then possibly transitioning to [facility] care facility. -SW spoke with family today and they would like to stay for subacute therapy in [facility] program and they are going to start looking at manager intermediate care facilities. (3) Anticoagulant long-term use Current Visit: No Status: Acute Base Code: Z79.01 - GEOPHYSICAL PROSPECTING PERMIT AGENT (CURRENT) USE OF ANTICOAGULANTS Priority: High Comment: 02/23/17-continue eliquis home dosing for VTE prophylaxis with chronic afib (4) Full code status Current Visit: Yes Status: Acute Base Code: Z78.9 - OTHER SPECIFIED HEALTH STATUS Comment: 02/23/17- patient is full code
[2017-02-23] MEDS ORDERED: IPRATROPIUM/ALBUTEROL (0.5MG/3MG) NEB INH PRN (17:20)
[2017-02-23] MEDS: HYDROCODONE/APAP 5/325MG TABLET PO PRN (19:14)
[2017-02-23] MEDS ORDERED: FESOTERODINE 4 MG PO SCH (22:00)
[2017-02-23] MEDS ORDERED: TEMAZEPAM 15 MG CAPSULE PO SCH (22:00)
[2017-02-23] MEDS: CEFTRIAXONE SODIUM 1 GM in 0.9 % SODIUM CHLORIDE 100ML 100 ML IVPB SCH (23:24)
[2017-02-23] MEDS: AZITHROMYCIN 500 MG TABLET PO SCH (23:25)
[2017-02-23] MEDS: TEMAZEPAM 15 MG CAPSULE PO PRN (23:25)
[2017-02-23] MEDS: [UNRECOGNIZED DRUG - OTHER] OPTH SCH (23:31)
[2017-02-24] MEDS ORDERED: CALCIUM CARBONATE 500 MG TAB.CHEW PO PRN (06:10)
[2017-02-24] MEDS: HYDROCODONE/APAP 5/325MG TABLET PO PRN (07:28)
[2017-02-24] MEDS: APIXABAN 2.5MG TABLET PO SCH ×2 (09:43→22:14)
[2017-02-24] MEDS: FLUOXETINE HCL 10 MG CAPSULE PO SCH (09:43)
[2017-02-24] MEDS: METOPROLOL TART 50 MG TABLET PO SCH (09:45)
[2017-02-24] MEDS: COMBIGAN OPTH SCH ×2 (10:00→22:31)
[2017-02-24] MEDS: OPTH OPTH SCH ×3 (10:00→22:13)
[2017-02-24] MEDS: DORZOLAMIDE 2% OPTH SCH ×2 (10:00→22:13)
--- NOTE | 2017-02-24 12:45 | Occupational Therapy Tx Note ---
Occupational Therapy Tx Note - Treatment Note Tolerated: Fair Total Time Spent With Patient: 30 (ADL) Occupational Therapy Treatment Note: Detail (S: Pt very sleepy but cooperative. O: Pt up in wheelchair. Transferred from wheelchair to toilet with max assist for stand pivot transfer and total assist to pull down briefs. Toileted with max assist x 1 for sit to stand and total assist for hygiene and to pull up briefs. Pt completed oral hygiene at sink with set up and max assist to open and apply toothpaste to toothbrush and min assist to rinse toothbrush. A: Pt had difficulty with bill hand coor. and depth perception during oral hygiene activity, very lethargic throughout treatment.) Occupational Therapy Problem List: Detail (1. Decreased Ind with functional mobility needed for safe ADLs. 2. Decreased UE function needed for safe and Ind ADLs/functional mobility. 3. Decreased Ind with self care activities.) Occupational Therapy Goals: 1. Pt will be Ind with sit to stand from chair, edge of bed and commode heights. 2. Pt will be Ind with grooming/hygiene activities. 3. Pt will require min assist or better for showering in sitting. Prognosis: Moderate Occupational Therapy Plan: OT 2-4 days per week to address self cares, functional mobility, UE function and overall endurance to allow return home with family.
--- NOTE | 2017-02-24 17:35 | Physical Therapy Tx Note ---
Physical Therapy Tx Note - Treatment Note Tolerated: Fair Total Time Spent With Patient: 15 Physical Therapy Tx Note: Detail (The patient was in bed when PT arrived and difficulty with arousal. The patient acheived supine to and from sit with moderate PA for upper body and maximal PA to lift LE's. The patient required moderate PA of 2 for sit to stand. The patient ambulated with wheeled walker 13 feet x 1 with CG of 1 and SBA of 1. The patient sat in a wheelchair and OT continued treatment with ADL's. The patient leaned posterior during sit to stand and ambulated with a flexed posture.) Physical Therapy Problem List: Detail (1) Assistance with bed mobility and transfers 2) Assistance with ambulation and numerous gait deviations 3) Decreased balance in standing 4) Decreased ability to complete prolonged physical activity) Physical Therapy Goals: 1) The patient will ambulate with assistive device with CG household distances (30 to 50 feet). 2) Evaluate the patient using objective balance test. 3) The patient will complete bed mobility with minimal to moderate assist. 4) The patient will acheive sit to stand transfer with CG/ supervision for safety. 5) The patient will tolerate 30 minutes of physical activity Physical Therapy Plan: PT daily for gait training, transfer training, bed mobility, LE strengthening and balance exercises.
[2017-02-24] MEDS: [UNRECOGNIZED DRUG - OTHER] OPTH SCH (22:08)
[2017-02-24] MEDS: ACETAMINOPHEN 500 MG TABLET PO PRN (22:14)
[2017-02-24] MEDS: AZITHROMYCIN 500 MG TABLET PO SCH (22:15)
[2017-02-24] MEDS: CEFTRIAXONE SODIUM 1 GM in 0.9 % SODIUM CHLORIDE 100ML 100 ML IVPB SCH (22:15)
[2017-02-24] MEDS: TEMAZEPAM 15 MG CAPSULE PO PRN (22:15)
[2017-02-25] MEDS ORDERED: DIPHENHYDRAMINE HCL 25 MG CAPSULE PO ONE (01:04)
--- NOTE | 2017-02-25 09:49 | Physical Therapy Tx Note ---
Physical Therapy Tx Note - Treatment Note Tolerated: Fair Total Time Spent With Patient: 20 Physical Therapy Tx Note: Detail (The patient was up in chair when PT arrived. The patient shaved independently in chair, however neglected to shave left side. The patient required moderate assist with sit to stand. The patient ambulated to bed with use of wheeled walker with verbal and tactile cues to move. The patient required minimal PA of 1 for upper and lower body. The patient was able to lift LE's today. The patient continues to have difficulty with initiation of movement.) Physical Therapy Problem List: Detail (1) Assistance with bed mobility and transfers 2) Assistance with ambulation and numerous gait deviations 3) Decreased balance in standing 4) Decreased ability to complete prolonged physical activity) Physical Therapy Goals: 1) The patient will ambulate with assistive device with CG household distances (30 to 50 feet). 2) Evaluate the patient using objective balance test. 3) The patient will complete bed mobility with minimal to moderate assist. 4) The patient will acheive sit to stand transfer with CG/ supervision for safety. 5) The patient will tolerate 30 minutes of physical activity Physical Therapy Plan: PT daily for gait training, transfer training, bed mobility, LE strengthening and balance exercises.
[2017-02-25] MEDS: METOPROLOL TART 50 MG TABLET PO SCH (10:22)
[2017-02-25] MEDS: FLUOXETINE HCL 10 MG CAPSULE PO SCH (10:23)
[2017-02-25] MEDS: APIXABAN 2.5MG TABLET PO SCH ×2 (10:23→22:18)
[2017-02-25] MEDS: DORZOLAMIDE 2% OPTH SCH ×2 (10:26→22:16)
[2017-02-25] MEDS: OPTH OPTH SCH ×3 (10:26→22:16)
[2017-02-25] MEDS: COMBIGAN OPTH SCH ×2 (10:26→22:22)
[2017-02-25] MEDS: HYDROCODONE/APAP 5/325MG TABLET PO PRN ×2 (11:23→22:18)
[2017-02-25] MEDS: CEFTRIAXONE SODIUM 1 GM in 0.9 % SODIUM CHLORIDE 100ML 100 ML IVPB SCH (22:08)
[2017-02-25] MEDS: [UNRECOGNIZED DRUG - OTHER] OPTH SCH (22:16)
[2017-02-25] MEDS: TEMAZEPAM 15 MG CAPSULE PO PRN (22:17)
[2017-02-25] MEDS: AZITHROMYCIN 500 MG TABLET PO SCH (22:18)
[2017-02-25] MEDS: FLUOROURACIL 5% TOP SCH (22:31)
[2017-02-26] MEDS: ACETAMINOPHEN 500 MG TABLET PO PRN ×2 (04:21→12:49)
[2017-02-26] MEDS: HYDROCODONE/APAP 5/325MG TABLET PO PRN ×3 (05:56→18:20)
[2017-02-26] MEDS: FLUOXETINE HCL 10 MG CAPSULE PO SCH (09:11)
[2017-02-26] MEDS: METOPROLOL TART 50 MG TABLET PO SCH (09:11)
[2017-02-26] MEDS: APIXABAN 2.5MG TABLET PO SCH ×2 (09:11→22:20)
[2017-02-26] MEDS: DORZOLAMIDE 2% OPTH SCH ×2 (09:46→22:21)
[2017-02-26] MEDS: OPTH OPTH SCH ×3 (09:46→22:22)
[2017-02-26] MEDS: FLUOROURACIL 5% TOP SCH ×2 (09:47→22:21)
[2017-02-26] MEDS: COMBIGAN OPTH SCH ×2 (09:48→22:00)
[2017-02-26] MEDS: CEPHALEXIN 500 MG CAPSULE PO SCH ×2 (13:03→17:48)
--- NOTE | 2017-02-26 13:29 | Physical Therapy Tx Note ---
Physical Therapy Tx Note - Treatment Note Tolerated: Good Total Time Spent With Patient: 30 Physical Therapy Tx Note: Detail (Pt sitting up in bed upon arrival, getting Tylenol from nrs due to c/o of neck pain. States neck pain is from fall at home. Pt cooperative for therapy, but stated he was only "half-sober" and " very cloudy in in the head". Performed 5 reps each of shoulder flexion, elbow flexion/extension, shoulder abduction B, and 10 reps of heel slides, SAQ, hip abduction and assisted ankle pumps B. Tolerated gentle calf stretches and hamstring stretches. Performed soft tissue mobilization to cervical paraspinals and upper trapezius for 10 minutes with pt reporting decreasing pain and tightness. Declined to get out of bed at this time.) Physical Therapy Problem List: Detail (1) Assistance with bed mobility and transfers 2) Assistance with ambulation and numerous gait deviations 3) Decreased balance in standing 4) Decreased ability to complete prolonged physical activity) Physical Therapy Goals: 1) The patient will ambulate with assistive device with CG household distances (30 to 50 feet). 2) Evaluate the patient using objective balance test. 3) The patient will complete bed mobility with minimal to moderate assist. 4) The patient will acheive sit to stand transfer with CG/ supervision for safety. 5) The patient will tolerate 30 minutes of physical activity Prognosis: Good Physical Therapy Plan: PT daily for gait training, transfer training, bed mobility, LE strengthening and balance exercises.
[2017-02-26] MEDS: [UNRECOGNIZED DRUG - OTHER] OPTH SCH (22:22)
[2017-02-26] MEDS: AZITHROMYCIN 500 MG TABLET PO SCH (22:22)
[2017-02-27] MEDS: CEPHALEXIN 500 MG CAPSULE PO SCH ×3 (00:14→11:23)
[2017-02-27] MEDS: ACETAMINOPHEN 500 MG TABLET PO PRN (03:47)
[2017-02-27] MEDS: FLUOXETINE HCL 10 MG CAPSULE PO SCH (11:09)
[2017-02-27] MEDS: APIXABAN 2.5MG TABLET PO SCH (11:09)
[2017-02-27] MEDS: FLUOROURACIL 5% TOP SCH (11:12)
[2017-02-27] MEDS: COMBIGAN OPTH SCH (11:15)
[2017-02-27] MEDS: OPTH OPTH SCH (11:19)
[2017-02-27] MEDS: DORZOLAMIDE 2% OPTH SCH (11:19)
--- NOTE | 2017-02-27 15:51 | Discharge Note ---
VTE H&P Assessment - Risk for VTE Risk for VTE: Yes Risk Level: High Risk Assessment Date: 02/23/17 Risk Assessment Time: 17:12 VTE Orders Placed or Will Be Placed: Yes Discharge Medications - Discharge Medications Home Medications: Ambulatory Orders Apixaban [Eliquis] 2.5 mg PO BID 12/30/16 [Last Taken 02/22/17] Brimonidine Tartrate/Timolol [Combigan 0.2%-0.5% Eye Drops] 5 ml OP BID [Last Taken 02/22/17] Dorzolamide HCl 10 ml OP BID 12/30/16 [Last Taken 02/22/17] Fesoterodine Fumarate [Toviaz] 4 mg PO QHS 12/30/16 [Last Taken 02/22/17] Fluoxetine HCl 10 mg PO DAILY 12/30/16 [Last Taken 02/22/17] Latanoprost 0.005% Opth Chelsey [Xalatan] 2.5 ml OP DAILY 12/30/16 [Last Taken 02/22] Omeprazole Magnesium [Prilosec Otc] 10 mg PO ASDIR 12/30/16 [Last Taken 02/22/17 ] Temazepam [Restoril] 15 mg PO QHS 12/30/16 [Last Taken 02/22/17] Acetaminophen [Tylenol 500Mg Tab] 500 mg PO Q6H PRN tablet 02/27/17 [Last Taken Unknown] Azithromycin [Zithromax] 500 mg PO QHS tab 02/27/17 [Last Taken Unknown] Calcium Carbonate [Tums] 500 mg PO Q4H PRN tab.chew 02/27/17 [Last Taken Unknown] Cephalexin [Keflex] 500 mg PO Q6HR capsule 02/27/17 [Last Taken Unknown] Metoprolol Tartrate [Lopressor] 12.5 mg PO BID tab 02/27/17 [Last Taken Unknown ] Temazepam [Restoril] 15 mg PO QHS PRN cap 02/27/17 [Last Taken Unknown] Zinc Oxide [Desitin] 28.35 gm TOP BID PRN tube 02/27/17 [Last Taken Unknown] Discharge Note - Date Date of Discharge Note: 02/27/17 Disposition: Inpatient Rehab Facility Condition: (1) Good Additional Instructions: going to [facility] swing bed for rehab and deconditioning Forms: Patient Portal Access Activity at Discharge: Increase Activity as Tolerated
--- NOTE | 2017-02-27 15:58 | History & Physical ---
History of Present Illness - Date Date of Service for History & Physical: 02/27/17 - History of Present Illness Admitting Diagnosis: Pneumonia, left lower lobe; generalized weakness, inability to ambulate; chronic atrial fibrillation. deconditioning General - Communication Preferred Language?: Bruneian - Continence Bowel Pattern: Normal for Patient, No Bowel Movement Bladder Pattern: Frequency, Urgency, Incontinent Urinary Incontinence: Unconscious - Nutrition Screening Poor oral intake > 1 week: No Unplanned weight loss in specified time frame: No Nutrition Support via tube feedings or parenteral nutrition: No Pressure Ulcer: Yes Significantly underweight define as BMI <18.5 kg/m2: No Albumin <2.5mg/dL: No Persistent nausea/vomiting/diarrhea >3 days: No Difficulty chewing/swallowing/mouth sores: No Admitting Diagnosis: Yes Nutrition Risk Score: High Risk Review of Systems Constitutional: Reports: As per HPI. Denies: Chills, Fever, Malaise, Night sweats, Weakness, Weight change Eyes: Reports: As per HPI. Denies: Eye discharge, Eye pain, Photophobia, Vision change ENT: Reports: As per HPI. Denies: Congestion, Dental pain, Ear pain, Epistaxis , Hearing loss, Throat pain Respiratory: Reports: As per HPI. Denies: Cough, Dyspnea, Hemoptysis, Stridor, Wheezes Cardiovascular: Reports: As per HPI. Denies: Arrhythmia, Chest pain, Dyspnea on exertion, Edema, Murmurs, Orthopnea, Palpitations, Paroxysmal nocturnal dyspnea, Rheumatic Fever, Syncope Endocrine: Reports: As per HPI. Denies: Fatigue, Heat or cold intolerance, Polydipsia, Polyuria Gastrointestinal: Reports: As per HPI. Denies: Abdominal pain, Constipation, Diarrhea, Hematemesis, Hematochezia, Melena, Nausea, Vomiting Genitourinary: Reports: As per HPI. Denies: Dysuria, Frequency, Hematuria, Incontinence, Retention, Testicular pain, Testicular mass, Urgency Musculoskeletal: Reports: As per HPI. Denies: Arthralgia, Back pain, Gout, Joint swelling, Myalgia, Neck pain Skin: Reports: As per HPI. Denies: Bruising, Change in color, Change in hair/ nails, Lesions, Pruritus, Rash Neurological: Reports: As per HPI. Denies: Abnormal gait, Confusion, Headache, Numbness, Paresthesias, Seizure, Tingling, Tremors, Vertigo, Weakness Psychiatric: Reports: As per HPI. Denies: Anxiety, Auditory hallucinations, Depression, Homicidal thoughts, Suicidal thoughts, Visual hallucinations Hematological/Lymphatic: Reports: As per HPI. Denies: Anemia, Blood Clots, Easy bleeding, Easy bruising, Swollen glands Past Medical History - SOCIAL HISTORY Smoking Status: Never smoker Alcohol Use: None - SURGICAL HISTORY Past Surgical History: [id number] POSITIVE MALIGNANT SPINDLE CELL NEOPLASM DX 01/2016 - HAD SURGICAL INTERVENTION 02/21/2016 AT [facility]; RECONSTRUCTION AND SKIN GRAFT 03/26/2016. Appendectomy, Hernia repair. Macular degeneration, Glaucoma - RESPIRATORY Hx Respiratory Disorders: No - CARDIOVASCULAR Hx Cardio Disorders: No Hx Abnormal EKG: (Afib hx) Hx Chest Pain: Yes Hx Hypertension: Yes Comment:: placed on midodrine for irregular blood pressure on 01/30/17 - NEURO Hx Neuro Disorders: Yes Hx Parkinson's Disease: Yes (son states neurologist does not believe patient has parkinson's) Comment:: son states neurologist believes poor balance is residual from silent stroke - GI Hx GI Disorders: No Hx Reflux: Yes Hx Irritable Bowel: Yes - Hx Genitourinary Disorders: Yes Hx Bladder Problem: Yes ([place]) Comment:: frequent urination, urine incontinence - ENDOCRINE Hx Endocrine Disorders: No Hx Diabetes: No Hx Thyroid Disease: No - MUSCULOSKELETAL Hx Musculoskeletal Disorders: Yes Hx Arthritis: Yes Comment:: hx right jaw fracture s/p fall 01/01/17 - PSYCH Hx Psych Problems: Yes Hx Depression: Yes - HEMATOLOGY/ONCOLOGY Hx Hematology/Oncology Disorders: Yes Hx Cancer: Yes (bladder) Family Medical History Any Significant Family History?: No Family Hx Comment (NOT TO BE USED IN PLACE OF ITEMS BELOW): unknown H&P Meds/Allergies - Allergies Allergies: Allergies Allergy/AdvReac Type Severity Reaction Status Date / Time No Known Drug Allergies Allergy Verified 02/22/17 18:50 - Home Medications Previous Rx's Medication Instructions Recorded Acetaminophen [Tylenol 500Mg Tab] 500 mg PO Q6H PRN tablet 02/27/17 Azithromycin [Zithromax] 500 mg PO QHS tab 02/27/17 Calcium Carbonate [Tums] 500 mg PO Q4H PRN tab.chew 02/27/17 Cephalexin [Keflex] 500 mg PO Q6HR capsule 02/27/17 Metoprolol Tartrate [Lopressor] 12.5 mg PO BID tab 02/27/17 Temazepam [Restoril] 15 mg PO QHS PRN cap 02/27/17 Zinc Oxide [Desitin] 28.35 gm TOP BID PRN tube 02/27/17 - Active Medications Active Medications: Current Medications Acetaminophen (Tylenol 500mg Tab) 500 mg PO Q6H PRN PRN Reason: PAIN/TEMP Last Admin: 02/27/17 03:47 Dose: 500 mg Hydrocodone Bitart/Acetaminophen (Eunice 5mg/325mg) 1 each PO Q6H PRN PRN Reason: Pain - Moderate (5-7) Last Admin: 02/26/17 18:20 Dose: 1 each Albuterol/Ipratropium (Duoneb) 3 ml INH RESP.Q4H PRN PRN Reason: Wheezing Apixaban (Eliquis) 2.5 mg PO BID [facility] Last Admin: 02/27/17 11:09 Dose: 2.5 mg Azithromycin (Zithromax) 500 mg PO QHS [facility] Last Admin: 02/26/17 22:22 Dose: 500 mg Calcium Carbonate/Glycine (Tums) 500 mg PO Q4H PRN PRN Reason: Heartburn Cephalexin HCl (Keflex) 500 mg PO Q6HR [facility] Stop: 03/08/17 12:31 Last Admin: 02/27/17 11:23 Dose: 500 mg Fluoxetine HCl (Prozac) 10 mg PO DAILY [facility] Last Admin: 02/27/17 11:09 Dose: 10 mg Metoprolol Tartrate (Lopressor) 12.5 mg PO BID [facility] Patient Own Med: (Combigan 0.2%-0.5%) 1 each OPTH BID [facility] Last Admin: 02/27/17 11:15 Dose: 1 each Patient Own Med: Dorzolamide 2% Opth Drops 1 each OPTH BID [facility] Last Admin: 02/27/17 11:19 Dose: 1 each Patient Own Med: Latanaprost 0.005% Opth Drops 1 each OPTH QHS [facility] Last Admin: 02/26/17 22:22 Dose: 1 each Patient Own Med: Fluorouracil Cream 5 % 0 each TOP BID [facility] Last Admin: 02/27/17 11:12 Dose: 1 each Temazepam (Restoril) 15 mg PO QHS PRN PRN Reason: INSOMNIA Last Admin: 02/25/17 22:17 Dose: 15 mg Zinc Oxide (Desitin) 28.35 gm TOP BID PRN PRN Reason: RASH Physical Exam - Vital Signs Vital Signs: Vital Signs - Last 24 Hrs Temp Pulse Pulse Resp BP Pulse Ox 02/27/17 09:06 97.6 F 68 18 116/80 97 02/27/17 09:02 18 02/27/17 04:00 97.9 F 54 L 18 154/81 97 02/26/17 21:00 53 L 16 02/26/17 20:00 98.1 F 57 L 20 162/78 99 - General General Appearance: Alert, Oriented x3, Cooperative, No acute distress - Head Head exam: Normal inspection - Eye Eye exam: Normal appearance, PERRL Pupils: Normal accommodation - ENT ENT exam: Normal exam, Mucous membranes moist, Normal external ear exam, Normal orophraynx, TM's normal bilaterally Ear exam: Normal external inspection. negative: External canal tenderness Nasal Exam: Normal inspection. negative: Discharge, Sinus tenderness Mouth exam: Normal external inspection, Tongue normal Teeth exam: Normal inspection. negative: Dental caries Throat exam: Normal inspection. negative: Tonsillar erythema, Tonsillar exudate - Neck Neck exam: Normal inspection, Full ROM. negative: Tenderness - Respiratory Respiratory exam: Normal lung sounds bilaterally. negative: Respiratory distress - Cardiovascular Cardiovascular Exam: Regular rate, Normal rhythm, Normal heart sounds - GI/Abdominal GI/Abdominal exam: Soft, Normal bowel sounds. negative: Tenderness - Rectal Rectal exam: Deferred - exam: Deferred - Extremities Extremities exam: Normal inspection, Full ROM, Normal capillary refill. negative: Tenderness - Back Back exam: Reports: Normal inspection, Full ROM. Denies: Muscle spasm, Rash noted, Tenderness - Neurological Neurological exam: Alert, Normal gait, Oriented X3, Reflexes normal - Psychiatric Psychiatric exam: Normal affect, Normal mood - Skin Skin exam: Dry, Intact, Normal color, Warm H&P Results - Labs Result Diagrams: 02/23/17 16:25 02/23/17 15:43 Plan - Swing Bed Certification Initial Certification Due: 02/23/17 14 Day Re-Cert Due: 03/09/17 44 Day Re-Cert Due: 04/08/17 74 Day Re-Cert Due: 05/08/17 - Detailed Diagnosis and Plan (1) Full code status Current Visit: Yes Status: Acute Base Code: Z78.9 - OTHER SPECIFIED HEALTH STATUS Comment: 02/23/17- patient is full code (2) Generalized weakness Current Visit: Yes Status: Acute Base Code: R53.1 - WEAKNESS Priority: High Comment: 02/27/15: Weakness is improving through work with therapy. Social work as facilitated for patient to receive home PT/OT, meals on wheels, home health and life line once he returns home. At care conference today discussed with family getting a chair for their shower at home and an extra walker. Also discussed patient sleeping on the lower level until home PT is able to work with him more on getting up and down stairs; family is also installing banisters on either side of the stairs to offer extra support. Suspect that patients weakness will continue to improve through work with therapy. (3) Physical deconditioning Current Visit: Yes Status: Acute Base Code: R53.81 - OTHER MALAISE Comment : 02/23/17- acute on chronic worsening of generalized weakness. Son is primary caregiver for patient and patient's who has dementia. Son has been having some difficulty taking care of his father due to his own medical condition. Says he has really noticed increasing weakness in the past week and over the course of this year patient has had at least 50 falls. -PT/OT evaluated patient and feel he would benefit from inpatient rehab followed by subacute stay and then possibly transitioning to jail care facility. -SW spoke with family today and they would [facility] and they are going to start looking at communications agent care facilities. (4) Pneumonia Current Visit: Yes Status: Acute Qualifiers: Pneumonia type: due to unspecified organism Laterality: left Lung location: lower lobe of lung Qualified Code(s): J18.1 - Lobar pneumonia, unspecified organism Base Code: J18.9 - PNEUMONIA, UNSPECIFIED ORGANISM Comment: 02/23/17- CXR showing probable left lower lobe infiltrate. Patient reports no cough or shortness of breath but has had increased weakness and some chills. appetite remains good and he is not requiring supplemental oxygen -continue rocephin 1gm IV q24h -continue azithromycin 500mg PO daily -duoneb q4H prn shortness of breath -vitals q8H -repeat labs qam (5) Anticoagulant long-term use Current Visit: No Status: Acute Base Code: Z79.01 - FDC (CURRENT) USE OF ANTICOAGULANTS Priority: High Comment: 02/23/17-continue eliquis home dosing for VTE prophylaxis with chronic afib (6) Chronic back pain Current Visit: No Status: Acute Base Code: M54.9 - DORSALGIA, UNSPECIFIED; G89.29 - OTHER CHRONIC PAIN Priority: High Comment: 02/27/15: Patients pain has been fairly well controlled on Tramadol 50mg q6-8hours PRN for back pain. Patient has not needed Eunice for pain for the past few days. Will plan to send patient home with Tramadol prescription today (Tramadol 50mg [id number] prn for pain, quant#120, 1 refill).
[2017-02-27] MEDS ORDERED: METOPROLOL TART 25 MG TABLET PO SCH (22:00)
--- NOTE | 2017-03-02 08:00 | Discharge Summary ---
DATE: 02/27/2017 DISCHARGE DIAGNOSES: 1. Pneumonia, left lower lobe. 2. Chronic atrial fibrillation and on Eliquis. 3. Bradycardia which has resolved and reduced the dose of metoprolol, switched from metoprolol succinate to metoprolol tartrate 12.5 mg twice a day. May need to go less than that if he starts to get more bradycardia. 4. Status post hypertension. 5. Status post history of cerebrovascular accident. 6. Gastroesophageal reflux disease. 7. Irritable bowel syndrome. 8. History of bladder cancer in remission. 9. Bradycardia which has resolved with stopping the metoprolol succinate. ATTENDING PHYSICIAN: Saleem Kennedy DO REASON FOR HOSPITALIZATION: Cough, congestion, weakness, and unable to stand up. This patient came into the emergency department, evaluated by Dr. Rashid because he could not get up and out of bed. He was falling 4-5 times. He had a slight cough. He is very deconditioned. He was evaluated by Dr. Rashid with a chest x-ray showing infiltrate in the left lower lobe and admitted with a diagnosis of pneumonia, left lower lobe. Started on IV antibiotics of Rocephin and azithromycin. SIGNIFICANT FINDINGS: Chest x-ray with left lower lobe pneumonia. Small infiltrate in the left lung base. Otherwise unremarkable chest. Head CT with generalized atrophy similar to the previous study. No mass, hemorrhage, or acute intracranial process. EKG showing atrial fibrillation with rate controlled. WBC 6800, hemoglobin 14.8, INR 1.2, potassium 4.3, BUN 18, creatinine 0.8, glucose 153, liver enzymes are normal. Brain natriuretic peptide 1440. Urine negative. His last set of electrolytes, potassium 4.2, BUN 24, creatinine 0.8. Glucose 153. Hemoglobin 14.5. THERAPY PROVIDED: The patient had IV Rocephin 1 g once a day and azithromycin 500 mg daily. He had DuoNeb ordered but he did not need them. HOSPITAL COURSE: Gradually improved. He is getting stronger, walking with 2-person assist and a wheelchair. Also in the hospital, he had an episode of bradycardia felt to be the metoprolol, which he is on metoprolol succinate 25 mg a day. We stopped that for approximately 24 hours. His rate came up to 68. Sadly I am concerned he will get a tachycardia, so I have decided to go with Lopressor, which is metoprolol tartrate, 12.5 twice a day. If necessary, we can go to once a day. It is a shorter acting drug, if he starts to go bradycardic again. CONDITION ON DISCHARGE: Much improved. DISCHARGE INSTRUCTIONS: The patient is going into the swing bed program to get stronger. We will continue Keflex 500 mg 4 times a day for 7 days, azithromycin 500 mg daily for 2 more days, and we will change to Lopressor which is metoprolol tartrate 12.5 twice a day. We are going to continue the Eliquis 2.5 b.i.d., timolol drops b.i.d., dorzolamide drops b.i.d. We are going to stop the Toviaz. He was using that at home for his urinary frequency but it did not help, so the family said they stopped it. Continue the fluoxetine 10 mg daily. Continue the Xalatan drops daily. Omeprazole 20 mg daily. Restoril 50 mg at h.s. Tylenol p.r.n., calcium carbonate, Tums 500 mg q.4 h. p.r.n., zinc oxide, Desitin for any areas of the skin that are irritated. CC: COLT SANTOS MD, FACP MTDD
== END 2017-02-27 18:00 | DRG 195 ==
LOC: ER 18:36 → UNDOADMIN 23:44 → MEDSURG 23:44
PROVIDERS: ADMIT Internal Medicine; ATTEND Internal Medicine
DX: J18.9 Pneumonia, unspecified organism (principal); I48.0 Paroxysmal atrial fibrillation; Z79.01 Long term (current) use of anticoagulants; T44.7X5A Adverse effect of beta-adrenoreceptor antagonists, initial encounter; R00.1 Bradycardia, unspecified; Y92.230 Patient room in hospital as the place of occurrence of the external cause; Z91.81 History of falling; I10 Essential (primary) hypertension; I69.393 Ataxia following cerebral infarction; K21.9 Gastro-esophageal reflux disease without esophagitis; K58.9 Irritable bowel syndrome, unspecified; Z85.51 Personal history of malignant neoplasm of bladder
CPT/HCPCS: 70450; 71046; 80053; 81003; 83880; 85025; 85610; 93005; 93010; 96374; 97110; 97165; 97530; 97535; 99223; 99233; 99239; 99285

== ENCOUNTER 2017-02-26 13:30 | Inpatient (IN) | payer MEDICARE, MEDICAID ==
--- NOTE | 2017-02-27 14:04 | Rehab Evaluation ---
Patient Information - Patient Information Diagnosis: deconditioning due to pneumonia Ordered Treatment: OT Evaluate and Treat Status: Initial Evaluation Surgery: No Past Medical/Surgical Hx: PAST MEDICAL/SURGICAL HISTORY Past Surgical History [id number] POSITIVE MALIGNANT SPINDLE CELL NEOPLASM DX 01/2016- HAD SURGICAL INTERVENTION 02/21/2016 AT [facility]; RECONSTRUCTION AND SKIN GRAFT 03/26/2016 Appendectomy, Hernia repair Macular degeneration, Glaucoma PMH - Respiratory Hx Respiratory Disorders No PMH - Cardiovascular Hx Cardiovascular Disorders No Hx Abnormal EKG Afib hx Hx Chest Pain Yes Hx Hypertension Yes Comment: placed on midodrine for irregular blood pressure on 01/30/17 PMH - Neuro Hx Neurological Disorders Yes Hx Parkinson's Disease Yes: son states neurologist does not believe patient has parkinson's Hx Seizures No Hx Syncope Yes Comment: son states neurologist believes poor balance is residual from silent stroke PMH - GI Hx Gastrointestinal Disorders No Hx Gastroesophageal Reflux Yes Hx Irritable Bowel Yes PMH - Hx Genitourinary Disorders Yes Hx Bladder Problem Yes: [place] Comment: frequent urination, urine incontinence PMH - Endocrine Hx Endocrine Disorders No Hx Diabetes No Hx Thyroid Disease No PMH - Musculoskeletal Hx Musculoskeletal Disorders Yes Hx Arthritis Yes Comment: hx right jaw fracture s/p fall 01/01/17 PMH - Psych Hx Psychiatric Problems Yes Hx Depression Yes PMH - Hematology/Oncology Hx Hematology/Oncology Yes Disorders Hx Cancer Yes: bladder Premorbid Status: Detail (Pt lives with and adult son in a 2 story house with basement. He reports having 8-10 steps with víctor handrailings at the entrance from the basement garage and 3 steps at the front entrance which is a long distance from the driveway. His bedroom and bathroom are on the second floor. In the upper level bathroom is a walk in shower with grab bar and standard height toilet with grab bar, on the lower level is a tub/shower combination. His completes laundry and they have a executive housekeeper 1 x per week, son completes all driving and assists pt with showering, dressing and other self care activities as needed. He has a shower seat and wheeled walker but usually walks without an assistive device.) Social History: Detail (Supportive son and .) Precautions: Notrees, Fall - Time With Patient Total Time Spent With Patient (Min): 45 Treatment Procedures: Detail (OT eval low complexity) Subjective Information - Subjective Information Per Patient Objective Data - Pain Pain Present: No - Mental Status Patient Orientation: Oriented x3 - Visual Perception Deficit (Pt wears glasses. Pt demonstrates mild depth perception impairments with self care task.) - ROM Not within normal limits (Víctor shoulder flexion limited to approx. 80 degrees, víctor elbow, wrist and hand AROM functional for self cares.) - Strength/Tone Not within normal limits (Víctor shoulder flexion 3+/5 within AROM limitations, víctor elbow flexion and extension 4/5, víctor polymer scientist 4/5) - Coordination Deficit (Pt demonstrates impairment with fine motor coordination during self care activities.) - Bed Mobility Dependent (Mod assist x 2 for supine to sit.) - Transfers Needs Assist (Min assist x 1-2 for sit to stand from wheelchair, EOB; mod assist x 1 for sit to stand from toilet height.) - Balance Balance Sitting: Fair Balance Standing: Fair - Sensation Intact - Gait Detail (Pt able to amb short distance in room with 2 wheeled walker and min assist x 2.) - ADL's/IADL's Detail (Pt requires min assist for oral hygiene due to decreased fine motor coor and visual perception, mod assist to comb hair due to decreased shoulder motion, toileting with max assist to manipulate pants and for toileting hygiene. ) Therapy Assessment - Therapy Assessment Detail (Pt presents with significant impairments in UE ROM, coordination and strength which are limiting his safety and Ind with self care activities. Decreased endurance and overall strength which are limiting his safety and Ind with functional mobility.) Problem List - Problem List Occupational Therapy Problem List: Detail (1. Decreased Ind with grooming/ hygiene. 2. Decreased Ind with total body dressing. 3. Decreased UE AROM, strength and coor needed for safe and Ind self cares. 4. Decreased functional mobility needed for Ind self cares.) Goals - Goals Occupational Therapy Goals: 1. Pt will be Ind with grooming/hygiene. 2. Pt will be Ind with total body dressing. 3. Pt will improve UE function to be Ind with self care activities. 4. Pt will be Ind with bed mobility and transfers to allow Ind with self cares. Prognosis - Prognosis Good Plan - Plan Occupational Therapy Plan: OT 2-4 days per week to address self cares, functional mobility, UE function and overall endurance.
--- NOTE | 2017-02-27 14:07 | Rehab Evaluation ---
Patient Information - Patient Information Diagnosis: pnemonial, generalized weakness, chronic A-fib Ordered Treatment: PT Evaluate and Treat Status: Initial Evaluation History: Detail (The patient was previously an inpatient and now is transferred to Swing Bed Unit . The patient has a hisrory of several falls over the past month.) Past Medical/Surgical Hx: PAST MEDICAL/SURGICAL HISTORY Past Surgical History [id number] POSITIVE MALIGNANT SPINDLE CELL NEOPLASM DX 01/2016- HAD SURGICAL INTERVENTION 02/21/2016 AT [facility]; RECONSTRUCTION AND SKIN GRAFT 03/26/2016 Appendectomy, Hernia repair Macular degeneration, Glaucoma PMH - Respiratory Hx Respiratory Disorders No PMH - Cardiovascular Hx Cardiovascular Disorders No Hx Abnormal EKG Afib hx Hx Chest Pain Yes Hx Hypertension Yes Comment: placed on midodrine for irregular blood pressure on 01/30/17 PMH - Neuro Hx Neurological Disorders Yes Hx Parkinson's Disease Yes: son states neurologist does not believe patient has parkinson's Hx Seizures No Hx Syncope Yes Comment: son states neurologist believes poor balance is residual from silent stroke PMH - GI Hx Gastrointestinal Disorders No Hx Gastroesophageal Reflux Yes Hx Irritable Bowel Yes PMH - Hx Genitourinary Disorders Yes Hx Bladder Problem Yes: [place] Comment: frequent urination, urine incontinence PMH - Endocrine Hx Endocrine Disorders No Hx Diabetes No Hx Thyroid Disease No PMH - Musculoskeletal Hx Musculoskeletal Disorders Yes Hx Arthritis Yes Comment: hx right jaw fracture s/p fall 01/01/17 PMH - Psych Hx Psychiatric Problems Yes Hx Depression Yes PMH - Hematology/Oncology Hx Hematology/Oncology Yes Disorders Hx Cancer Yes: bladder Premorbid Status: Detail (The patient was completing mobility with assistance of son.) Social History: Detail (The patient lives with wef and adult son in a 2 story house with basement. He reports 8-10 steps and bilateral handrailing at the enterance from the garage. Another enterance has less steps but is a long walk from the garage. The patient's bedroom is on the second floor, with a bathroom with a walk in shower with grab bars and a tub seat available but not ususally used. The upstairs bathroom also has a standard toilet and grab bars. The patient's was completing laundry and cooking per her report with a adzing and boring machine helper completing other chores once a week. The patient's son was assisting with bed mobility, transfers and ambulation. The patient's son also reports that the patient's home is not acessible to a walker.) Precautions: [place], Fall - Time With Patient Total Time Spent With Patient (Min): 30 Treatment Procedures: Detail (Initial Evaluation, gait training.) Subjective Information - Subjective Information Per Patient (The patient had no complaints. The patient was up in chair and was alert.) Objective Data - Mental Status Patient Orientation: Oriented x3 (The patient follows simple commands. The patient has difficulty initiating movement.) - Visual Perception Deficit (The patient wears glasses.) - ROM Within normal limits (The patient's LE AROM is WFL.) - Strength/Tone Not within normal limits (The patient had difficulty understanding the use of resistance for strength testing. LE strength was generally 4 to 4-/5.) - Bed Mobility Needs Assist (The patient required minimal / moderate assist of 1 lifting LE's with sit to supine and minimal PA of 1 with upper body.) - Transfers Needs Assist (Minimal PA of 1 with sit to stand and Moderate PA of 1 from lower surface. The patient requires verbal cues for proper technique. The patient's level of assistance is variable dependent on fatigue level.) - Balance Balance Sitting: Fair Balance Standing: Poor (The patient exhibited LOB x1 while standing in bathroom. The patient requires support of walker to maintain balance. The patient's balance was not formally assessed using Objective balance scale.) - Gait Detail (The patient ambulated with wheeled walker with CG of 1 and SBA of 1, verbal cueing and tactile cueing was required to assist in initiation of movement plus occasional steering of walker , a distance of 12 feet x 1 and 20 feet x 1. The patient's gait pattern is characterized by small shuffling steps and flexed posturing of hips,knees and trunk. Occasional tremoring of bilateral LE's and UE's was noted during ambulation.) Therapy Assessment - Therapy Assessment Detail (The patient's assistance level is variable on fatigue level. The patient requires minimal to moderate assistance with bed mobilty and transfers and CG plus tactile and verbal cues with ambulation. Feel the patient will benefit from Rehab services to improve functional level.) Problem List - Problem List Physical Therapy Problem List: Detail (1) Assistance with bed mobility and transfer 2) Assistance with ambulatioon and numerous gait deviations 3) Decreased balance in standing 4) Decreased ability to complete prolonged physical activity) Goals - Goals Physical Therapy Goals: 1) Assess the patient's balance using Objective balance test. 2) The patient will ambulate with assistive device with CG distances of 30 to 50 feet. 3) The patient will complete bed mobilty independently with upper body and minimal PA lifting LE's. 4) The patient will acheived sit to and from transfer with CG/supervision for safety. 5) The patient will tolerate 30 min. of physical activity Prognosis - Prognosis Moderate Plan - Plan Physical Therapy Plan: PT 1-2 times a day for gait training, transfer training, bed mobilty, LE strengthening and balance exercises.
[2017-02-27] MEDS ORDERED: ZINC OXIDE 28.35 GM TUBE TOP PRN (15:55)
[2017-02-27] MEDS ORDERED: CALCIUM CARBONATE 500 MG TAB.CHEW PO PRN (15:55)
[2017-02-27] MEDS ORDERED: TEMAZEPAM 15 MG CAPSULE PO PRN (15:55)
[2017-02-27] MEDS ORDERED: PNEUM 13-VAL/PF 0.5 ML IM ONE (18:26)
[2017-02-27] MEDS: CEPHALEXIN 500 MG CAPSULE PO SCH (18:33)
[2017-02-27] MEDS: FLUOROURACIL 5% TOP SCH (22:45)
[2017-02-27] MEDS: COMBIGAN OPTH SCH (22:46)
[2017-02-27] MEDS: DORZOLAMIDE 2% OPTH SCH (22:48)
[2017-02-27] MEDS: OPTH OPTH SCH ×2 (22:48→22:49)
[2017-02-27] MEDS: AZITHROMYCIN 500 MG TABLET PO SCH (22:48)
[2017-02-27] MEDS: APIXABAN 2.5MG TABLET PO SCH (22:48)
[2017-02-27] MEDS: METOPROLOL TART 25 MG TABLET PO SCH (22:48)
[2017-02-27] MEDS: [UNRECOGNIZED DRUG - OTHER] OPTH SCH (22:49)
[2017-02-28] MEDS: CEPHALEXIN 500 MG CAPSULE PO SCH ×5 (00:20→18:00)
--- NOTE | 2017-02-28 09:22 | History & Physical ---
History of Present Illness - Date Date of Service for History & Physical: 02/28/17 - History of Present Illness Admitting Diagnosis: Deconditioning d/t LLL Pneumonia. atrial fib on eliquis History of Present Illness: paatient weak and unable to get up and presented to ED at [facility] and diagnosised with pneumonia and admitted to [facility]. Patient to weak to go home and was placed in the swing bed program for rehab. General - Cognitive Patterns Speech: Normal Thought Process: Intact Thought Content: Normal Orientation: Person - Communication Preferred Language?: Azerbaijani Consultant Nurse Required: No Level of Education: College Preferred Method of Learning: Seeing, Doing, Reading Comprehension Ability: Impairment Able to Read: Yes (no longer able to read newspaper print) Able to Write: Yes Select best description of speech pattern: Clear Speech Ability to express ideas and wants: Usually Understood Understanding verbal content: Usually Understands - Psychosocial Well-Being Usual Living Arrangement: Spouse - Physical Functioning Activity Level: Up with assist x2 Turning: With total assist ROM Ability: Moves all extremities Assistive Devices: Walker Ambulation Ability: Dependent Bed Mobility: Dependent Transfer Ability: Dependent Bathing Ability: Dependent Personal Hygiene: Dependent Dressing Ability: Dependent Eating (Feeding) Ability: Dependent Toileting Ability: Dependent Administer Own Medication: Dependent - Continence Bladder Pattern: Frequency, Incontinent - Dental Status Unable to examine: No Broken or loosely fitting full or partial dentures: No No natural teeth or tooth fragment(s) (edentulous): No Abnormal mouth tissue (ulcers, masses, oral lesions, etc.): No Obvious or likely cavity or broken natural teeth: No Inflamed or bleeding gums or loose natural teeth: No Mouth/facial pain, discomfort or difficulty chewing: No - Nutrition Screening Poor oral intake > 1 week: No Unplanned weight loss in specified time frame: No Nutrition Support via tube feedings or parenteral nutrition: No Pressure Ulcer: No Significantly underweight define as BMI <18.5 kg/m2: No Albumin <2.5mg/dL: No Persistent nausea/vomiting/diarrhea >3 days: No Difficulty chewing/swallowing/mouth sores: No Admitting Diagnosis: No Nutrition Risk Score: Low Risk Past Medical History - SOCIAL HISTORY Smoking Status: Former smoker Alcohol Use: None - SURGICAL HISTORY Past Surgical History: SOX10 POSITIVE MALIGNANT SPINDLE CELL NEOPLASM DX 01/2016 - HAD SURGICAL INTERVENTION 02/21/2016 AT [facility]; RECONSTRUCTION AND SKIN GRAFT 03/26/2016. Appendectomy, Hernia repair. Macular degeneration, Glaucoma - RESPIRATORY Hx Respiratory Disorders: No - CARDIOVASCULAR Hx Cardio Disorders: No Hx Abnormal EKG: (Afib hx) Hx Chest Pain: Yes Hx Hypertension: Yes Comment:: placed on midodrine for irregular blood pressure on 01/30/17 - NEURO Hx Neuro Disorders: Yes Hx Parkinson's Disease: Yes (son states neurologist does not believe patient has parkinson's) Comment:: son states neurologist believes poor balance is residual from silent stroke - GI Hx GI Disorders: No Hx Reflux: Yes Hx Irritable Bowel: Yes - Hx Genitourinary Disorders: Yes Hx Bladder Problem: Yes (CA) Comment:: frequent urination, urine incontinence - ENDOCRINE Hx Endocrine Disorders: No Hx Diabetes: No Hx Thyroid Disease: No - MUSCULOSKELETAL Hx Musculoskeletal Disorders: Yes Hx Arthritis: Yes Comment:: hx right jaw fracture s/p fall 01/01/17 - PSYCH Hx Psych Problems: Yes Hx Depression: Yes - HEMATOLOGY/ONCOLOGY Hx Hematology/Oncology Disorders: Yes Hx Cancer: Yes (bladder) Family Medical History Any Significant Family History?: No Family Hx Comment (NOT TO BE USED IN PLACE OF ITEMS BELOW): unknown H&P Meds/Allergies - Allergies Allergies: Allergies Allergy/AdvReac Type Severity Reaction Status Date / Time No Known Drug Allergies Allergy Verified 02/22/17 18:50 - Home Medications Previous Rx's Medication Instructions Recorded Acetaminophen [Tylenol 500Mg Tab] 500 mg PO Q6H PRN tablet 02/27/17 Azithromycin [Zithromax] 500 mg PO QHS tab 02/27/17 Calcium Carbonate [Tums] 500 mg PO Q4H PRN tab.chew 02/27/17 Cephalexin [Keflex] 500 mg PO Q6HR capsule 02/27/17 Metoprolol Tartrate [Lopressor] 12.5 mg PO BID tab 02/27/17 Temazepam [Restoril] 15 mg PO QHS PRN cap 02/27/17 Zinc Oxide [Desitin] 28.35 gm TOP BID PRN tube 02/27/17 - Active Medications Active Medications: Current Medications Acetaminophen (Tylenol 500mg Tab) 500 mg PO Q6H PRN PRN Reason: PAIN/TEMP Hydrocodone Bitart/Acetaminophen (Kismet 5mg/325mg) 1 each PO Q6H PRN PRN Reason: Pain - Moderate (5-7) Apixaban (Eliquis) 2.5 mg PO BID [facility] Last Admin: 02/27/17 22:48 Dose: 2.5 mg Azithromycin (Zithromax) 500 mg PO QHS [facility] Stop: 02/28/17 22:01 Last Admin: 02/27/17 22:48 Dose: 500 mg Calcium Carbonate/Glycine (Tums) 500 mg PO Q4H PRN PRN Reason: Heartburn Cephalexin HCl (Keflex) 500 mg PO Q6HR [facility] Stop: 03/06/17 18:01 Last Admin: 02/28/17 05:26 Dose: 500 mg Fluoxetine HCl (Prozac) 10 mg PO DAILY [facility] Metoprolol Tartrate (Lopressor) 12.5 mg PO BID [facility] Last Admin: 02/27/17 22:48 Dose: 12.5 mg Patient Own Med: (Combigan 0.2%-0.5%) 1 each OPTH BID [facility] Last Admin: 02/27/17 22:46 Dose: 1 each Patient Own Med: Dorzolamide 2% Opth Drops 1 each OPTH BID [facility] Last Admin: 02/27/17 22:48 Dose: Not Given Patient Own Med: Latanaprost 0.005% Opth Drops 1 each OPTH QHS [facility] Last Admin: 02/27/17 22:49 Dose: 1 each Patient Own Med: Fluorouracil Cream 5 % 0 each TOP BID [facility] Last Admin: 02/27/17 22:45 Dose: 1 each Temazepam (Restoril) 15 mg PO QHS PRN PRN Reason: INSOMNIA Zinc Oxide (Desitin) 28.35 gm TOP BID PRN PRN Reason: RASH Physical Exam - Vital Signs Vital Signs: Vital Signs - Last 24 Hrs Temp Pulse Resp BP BP Pulse Ox 02/28/17 08:00 98.9 F 67 18 163/94 98 02/27/17 22:00 99.4 F 71 18 159/83 97 02/27/17 18:10 99.0 F 72 18 134/84 99 - General General Appearance: Alert, Oriented x3, Cooperative, No acute distress - Head Head exam: Normal inspection - Eye Eye exam: Normal appearance, PERRL Pupils: Normal accommodation - ENT ENT exam: Normal exam, Mucous membranes moist, Normal external ear exam, Normal orophraynx, TM's normal bilaterally Ear exam: Normal external inspection. negative: External canal tenderness Nasal Exam: Normal inspection. negative: Discharge, Sinus tenderness Mouth exam: Normal external inspection, Tongue normal Teeth exam: Normal inspection. negative: Dental caries Throat exam: Normal inspection. negative: Tonsillar erythema, Tonsillar exudate - Neck Neck exam: Normal inspection, Full ROM. negative: Tenderness - Respiratory Respiratory exam: Normal lung sounds bilaterally. negative: Respiratory distress - Cardiovascular Cardiovascular Exam: Regular rate, Normal rhythm, Normal heart sounds - GI/Abdominal GI/Abdominal exam: Soft, Normal bowel sounds. negative: Tenderness - Rectal Rectal exam: Deferred - exam: Deferred - Extremities Extremities exam: Normal inspection, Full ROM, Normal capillary refill. negative: Tenderness - Back Back exam: Reports: Normal inspection, Full ROM. Denies: Muscle spasm, Rash noted, Tenderness - Neurological Neurological exam: Alert, Normal gait, Oriented X3, Reflexes normal - Psychiatric Psychiatric exam: Normal affect, Normal mood - Skin Skin exam: Dry, Intact, Normal color, Warm Discharge Potential - Discharge Needs Community Services Used Prior to Admission: None Patient Discharge Plan Description: Return Home Community Services Needed at Discharge: Home Health Aide, Home Health Nurse, Occupational Therapy, Physical Therapy Plan - Swing Bed Certification Initial Certification Due: 02/27/17 14 Day Re-Cert Due: 03/13/17 44 Day Re-Cert Due: 04/12/17 74 Day Re-Cert Due: 05/12/17 - Detailed Diagnosis and Plan (1) Physical deconditioning Current Visit: No Status: Acute Base Code: R53.81 - OTHER MALAISE Priority : High Comment: 02/23/17- acute on chronic worsening of generalized weakness. Son is primary caregiver for patient and patient's who has dementia. Son has been having some difficulty taking care of his father due to his own medical condition. Says he has really noticed increasing weakness in the past week and over the course of this year patient has had at least 50 falls. -PT/OT evaluated patient and feel he would benefit from inpatient rehab followed by subacute stay and then possibly transitioning to rat exterminator care facility. -SW spoke with family today and they would like to stay for subacute therapy in [facility]ing[facility] program and they are going to start looking at moth exterminator care facilities. (2) Hypertension Current Visit: No Status: Acute Base Code: I10 - ESSENTIAL (PRIMARY) HYPERTENSION Priority: Low (3) Pneumonia Current Visit: No Status: Acute Base Code: J18.9 - PNEUMONIA, UNSPECIFIED ORGANISM Priority: Medium Comment: 02/23/17- CXR 02/22/17 showing probable left lower lobe infiltrate. Patient reports no cough or shortness of breath but has had increased weakness and some chills. appetite remains good and he is not requiring supplemental oxygen -continue rocephin 1gm IV q24h -continue azithromycin 500mg PO daily -duoneb q4H prn shortness of breath -vitals q8H -repeat labs qam (4) Atrial fibrillation Current Visit: Yes Status: Acute Base Code: I48.91 - UNSPECIFIED ATRIAL FIBRILLATION Priority: Medium
[2017-02-28] MEDS: METOPROLOL TART 25 MG TABLET PO SCH ×2 (09:55→22:26)
[2017-02-28] MEDS: APIXABAN 2.5MG TABLET PO SCH ×2 (09:56→22:25)
[2017-02-28] MEDS: DORZOLAMIDE 2% OPTH SCH ×2 (09:56→22:27)
[2017-02-28] MEDS: FLUOXETINE HCL 10 MG CAPSULE PO SCH (09:56)
[2017-02-28] MEDS: OPTH OPTH SCH ×3 (09:56→22:27)
[2017-02-28] MEDS: FLUOROURACIL 5% TOP SCH ×2 (09:57→22:26)
[2017-02-28] MEDS: COMBIGAN OPTH SCH ×2 (09:57→22:27)
[2017-02-28] MEDS: HYDROCODONE/APAP 5/325MG TABLET PO PRN ×2 (12:37→18:54)
[2017-02-28] MEDS: AZITHROMYCIN 500 MG TABLET PO SCH (22:26)
[2017-02-28] MEDS: [UNRECOGNIZED DRUG - OTHER] OPTH SCH (22:26)
[2017-03-01] MEDS: CEPHALEXIN 500 MG CAPSULE PO SCH ×3 (06:34→18:56)
[2017-03-01] MEDS: METOPROLOL TART 25 MG TABLET PO SCH ×2 (09:06→21:17)
[2017-03-01] MEDS: APIXABAN 2.5MG TABLET PO SCH ×2 (09:06→21:16)
[2017-03-01] MEDS: FLUOXETINE HCL 10 MG CAPSULE PO SCH (09:08)
[2017-03-01] MEDS: OPTH OPTH SCH ×3 (09:10→21:20)
[2017-03-01] MEDS: DORZOLAMIDE 2% OPTH SCH ×2 (09:10→21:20)
[2017-03-01] MEDS: COMBIGAN OPTH SCH ×2 (09:11→21:20)
[2017-03-01] MEDS: FLUOROURACIL 5% TOP SCH ×2 (09:12→21:17)
[2017-03-01] MEDS: ACETAMINOPHEN 500 MG TABLET PO PRN (10:11)
[2017-03-01] MEDS: HYDROCODONE/APAP 5/325MG TABLET PO PRN ×2 (13:01→21:16)
[2017-03-01] MEDS: [UNRECOGNIZED DRUG - OTHER] OPTH SCH (21:20)
[2017-03-02] MEDS: CEPHALEXIN 500 MG CAPSULE PO SCH ×5 (00:06→23:39)
[2017-03-02] MEDS: ACETAMINOPHEN 500 MG TABLET PO PRN ×2 (05:05→12:02)
[2017-03-02] MEDS: APIXABAN 2.5MG TABLET PO SCH ×2 (09:04→21:07)
[2017-03-02] MEDS: METOPROLOL TART 25 MG TABLET PO SCH ×2 (09:04→21:06)
[2017-03-02] MEDS: FLUOXETINE HCL 10 MG CAPSULE PO SCH ×2 (09:05→23:39)
[2017-03-02] MEDS: COMBIGAN OPTH SCH ×2 (09:06→21:05)
[2017-03-02] MEDS: OPTH OPTH SCH ×3 (09:13→21:06)
[2017-03-02] MEDS: DORZOLAMIDE 2% OPTH SCH ×2 (09:13→21:06)
[2017-03-02] MEDS: FLUOROURACIL 5% TOP SCH ×2 (09:13→21:07)
[2017-03-02] MEDS: HYDROCODONE/APAP 5/325MG TABLET PO PRN ×4 (09:23→23:56)
--- NOTE | 2017-03-02 11:04 | Occupational Therapy Tx Note ---
Occupational Therapy Tx Note - Treatment Note Tolerated: Poor Total Time Spent With Patient: 30 (ADL) Occupational Therapy Treatment Note: Detail (S: Pt very sleepy, sitting in chair with spouse, son and 1 visitor. O: Pt able to open eyes with mod verbal cues. He was oriented to location but required ongoing verbal direction to complete OT session. Pt doffed gown with max assist, donned t-shirt with max verbal cues and max physical assist to start sleeves over hands and to pull sleeves up arms, he was able to pull shirt overhead with repeated verbal cues. Pt required max assist to start pants over feet, he was not able to lift feet off floor. Mod assist x 1 for sit to stand from chair to walker, min assist to maintain upright due to pt leaning to the rear in standing. Total assist to pull up pants. Pt amb 5 feet from chair to EOB with 2 wheeled walker and mod physical assist and max verbal cues. Stand to sit with mod assist, sit to supine with max assist x 1. A: Pt very sleepy today and required continuous verbal cueing to participate. Max assist for dressing due to sleepiness.) Occupational Therapy Problem List: Detail (1. Decreased Ind with grooming/ hygiene. 2. Decreased Ind with total body dressing. 3. Decreased UE AROM, strength and coor needed for safe and Ind self cares. 4. Decreased functional mobility needed for Ind self cares.) Occupational Therapy Goals: 1. Pt will be Ind with grooming/hygiene. 2. Pt will be Ind with total body dressing. 3. Pt will improve UE function to be Ind with self care activities. 4. Pt will be Ind with bed mobility and transfers to allow Ind with self cares. Prognosis: Moderate Occupational Therapy Plan: OT 2-4 days per week to address self cares, functional mobility, UE function and overall endurance.
--- NOTE | 2017-03-02 13:22 | Physical Therapy Tx Note ---
Physical Therapy Tx Note - Treatment Note Tolerated: Poor Physical Therapy Tx Note: Detail (The patient was in bed when PT arrived. The patient was easily arroused but did not open his eyes. The patient reported he was too tired to participate but would try. The patient completed 3 to 4 heel raises with assistance and hip abduction/adduction with assistance. The patient stated he had to go to the bathroom. Nursing staff was notified . PT treatment was discontinued due to patient's lethargy and inability to participate. The patient was seen aproximately 10 minutes.) Physical Therapy Problem List: Detail (1) Assistance with bed mobility and transfer 2) Assistance with ambulatioon and numerous gait deviations 3) Decreased balance in standing 4) Decreased ability to complete prolonged physical activity) Physical Therapy Goals: 1) Assess the patient's balance using Objective balance test. 2) The patient will ambulate with assistive device with CG distances of 30 to 50 feet. 3) The patient will complete bed mobilty independently with upper body and minimal PA lifting LE's. 4) The patient will acheived sit to and from transfer with CG/supervision for safety. 5) The patient will tolerate 30 min. of physical activity Physical Therapy Plan: PT 1-2 times a day for gait training, transfer training, bed mobilty, LE strengthening and balance exercises.
[2017-03-02] MEDS: [UNRECOGNIZED DRUG - OTHER] OPTH SCH (21:06)
[2017-03-02] MEDS ORDERED: TRAZODONE 50 MG TABLET PO ONE (21:40)
[2017-03-03] MEDS ORDERED: TRAZODONE 50 MG TABLET PO ONE
[2017-03-03] MEDS ORDERED: TRAZODONE 50 MG TABLET PO SCH (02:45)
[2017-03-03] MEDS: CEPHALEXIN 500 MG CAPSULE PO SCH ×4 (06:39→23:00)
[2017-03-03] MEDS: ACETAMINOPHEN 500 MG TABLET PO PRN ×2 (06:39→14:05)
[2017-03-03] MEDS: FLUOROURACIL 5% TOP SCH ×2 (10:59→22:41)
[2017-03-03] MEDS: COMBIGAN OPTH SCH ×2 (10:59→22:42)
[2017-03-03] MEDS: DORZOLAMIDE 2% OPTH SCH ×2 (11:01→22:41)
[2017-03-03] MEDS: OPTH OPTH SCH ×3 (11:01→22:42)
[2017-03-03] MEDS: METOPROLOL TART 25 MG TABLET PO SCH ×3 (11:03→22:40)
[2017-03-03] MEDS: APIXABAN 2.5MG TABLET PO SCH ×2 (11:03→22:39)
--- NOTE | 2017-03-03 11:31 | Occupational Therapy Tx Note ---
Occupational Therapy Tx Note - Treatment Note Tolerated: Poor Total Time Spent With Patient: 20 (ADL) Occupational Therapy Treatment Note: Detail (S: Pt up in chair, eyes closed and lethargic. O: Pt c/o something being caught in his teeth, per family he is unable to use toothpick this am. Sit to stand and amb 4 feet with 2 wheeled walker and max assist x 1 to maintain balance and max assist x 1 to move feet forward and steer walker. Pt transported to sink in wheelchair. Completed oral hygiene with max assist to apply toothpaste to toothbrush. He was able to open toothpaste and partially brush teeth although he required ongoing verbal cues and mod physical assist. He was able to dislodge item from teeth with toothpick with min assist. Pt washed eyes/mouth with washcloth and mod assist to lift washcloth to face. Pt left in room, in wheelchair with family. A: Pt requiring significantly more assistance with mobility and self care activities, very lethargic and unable to keep eyes open.) Occupational Therapy Problem List: Detail (1. Decreased Ind with grooming/ hygiene. 2. Decreased Ind with total body dressing. 3. Decreased UE AROM, strength and coor needed for safe and Ind self cares. 4. Decreased functional mobility needed for Ind self cares.) Occupational Therapy Goals: 1. Pt will be Ind with grooming/hygiene. 2. Pt will be Ind with total body dressing. 3. Pt will improve UE function to be Ind with self care activities. 4. Pt will be Ind with bed mobility and transfers to allow Ind with self cares. Prognosis: Moderate Occupational Therapy Plan: OT 2-4 days per week to address self cares, functional mobility, UE function and overall endurance.
--- NOTE | 2017-03-03 13:16 | Physical Therapy Tx Note ---
Physical Therapy Tx Note - Treatment Note Physical Therapy Tx Note: Detail (The patient was not seen secondary to sleeping and unable to arouse.) Physical Therapy Problem List: Detail (1) Assistance with bed mobility and transfer 2) Assistance with ambulatioon and numerous gait deviations 3) Decreased balance in standing 4) Decreased ability to complete prolonged physical activity) Physical Therapy Goals: 1) Assess the patient's balance using Objective balance test. 2) The patient will ambulate with assistive device with CG distances of 30 to 50 feet. 3) The patient will complete bed mobilty independently with upper body and minimal PA lifting LE's. 4) The patient will acheived sit to and from transfer with CG/supervision for safety. 5) The patient will tolerate 30 min. of physical activity Physical Therapy Plan: PT 1-2 times a day for gait training, transfer training, bed mobilty, LE strengthening and balance exercises.
[2017-03-03 13:40] LABS: URINE APPEARANCE CLEAR; URINE BILIRUBIN NEGATIVE (NEGATIVE); URINE BLOOD NEGATIVE (NEGATIVE); URINE COLOR YELLOW; URINE GLUCOSE (UA) NEGATIVE (NEGATIVE); URINE KETONE NEGATIVE (NEGATIVE); URINE LEUKOCYTE ESTERASE NEGATIVE (NEGATIVE); URINE NITRITE NEGATIVE (NEGATIVE); URINE PROTEIN NEGATIVE (NEGATIVE); URINE UROBILINOGEN 0.2 E.U./dL (0.20 - 1.00)
[2017-03-03] MEDS: MELATONIN 5 MG TABLET PO PRN (22:39)
[2017-03-03] MEDS: [UNRECOGNIZED DRUG - OTHER] OPTH SCH (22:42)
[2017-03-04] MEDS: CEPHALEXIN 500 MG CAPSULE PO SCH ×3 (06:36→20:26)
--- NOTE | 2017-03-04 10:21 | Physical Therapy Tx Note ---
Physical Therapy Tx Note - Treatment Note Tolerated: Fair Total Time Spent With Patient: 35 Physical Therapy Tx Note: Detail (Patient was sitting in chair upon arrival. The patient went from sit to stand to his walker with mod. assist of 2, which included verbal cuing for hand placement on his walker after arising from chair and to move the body into an upright posture in standing. He returned to sitting to put his pants on and required moderate assist and cuing to pull pants up on his own. He returned to standing with mod. assist as before, but required max assist to get his pants entirely up. The patient ambulated for 10 feet from his chair to the doorway, and required max assist for weight shifting to the right for a left step and turning, as well. After ambulation, the patient requested to use the restroom, and was transferred to his wheel chair using mod assist from stand to sit. In the restroom, he required max assist of 2 and verbal cuing for hand placement on the toilet grab bars, and required the same cuing for returning to his chair from the toilet. The patient also completed trunk exercises including anterior/ posterior tilt with tactile cues to acheive anterior tilt. Patient exhibited increased trunk tone with anterior tilt ( Angela scale 3). The patient was left in wheelchair with family present.) Physical Therapy Problem List: Detail (1) Assistance with bed mobility and transfer 2) Assistance with ambulatioon and numerous gait deviations 3) Decreased balance in standing 4) Decreased ability to complete prolonged physical activity) Physical Therapy Goals: 1) Assess the patient's balance using Objective balance test. 2) The patient will ambulate with assistive device with CG distances of 30 to 50 feet. 3) The patient will complete bed mobilty independently with upper body and minimal PA lifting LE's. 4) The patient will acheived sit to and from transfer with CG/supervision for safety. 5) The patient will tolerate 30 min. of physical activity Prognosis: Moderate Physical Therapy Plan: PT 1-2 times a day for gait training, transfer training, bed mobilty, LE strengthening and balance exercises.
[2017-03-04] MEDS: METOPROLOL TART 25 MG TABLET PO SCH ×2 (11:08→22:20)
[2017-03-04] MEDS: APIXABAN 2.5MG TABLET PO SCH ×2 (11:09→21:34)
[2017-03-04] MEDS: ACETAMINOPHEN 500 MG TABLET PO PRN (11:10)
[2017-03-04] MEDS: FLUOXETINE HCL 10 MG CAPSULE PO SCH (11:10)
[2017-03-04] MEDS: COMBIGAN OPTH SCH ×2 (11:11→21:37)
[2017-03-04] MEDS: OPTH OPTH SCH ×3 (11:11→21:37)
[2017-03-04] MEDS: DORZOLAMIDE 2% OPTH SCH ×2 (11:11→21:36)
[2017-03-04] MEDS: FLUOROURACIL 5% TOP SCH ×2 (11:27→21:36)
--- NOTE | 2017-03-04 14:55 | Occupational Therapy Tx Note ---
Occupational Therapy Tx Note - Treatment Note Tolerated: Good, Fair Total Time Spent With Patient: 30 (ADL) Occupational Therapy Treatment Note: Detail (S: Pt up in chair, very fatigued. O: UE dressing activity-pt required max verbal cues and mod physical assist to [facility] gown, max verbal cues and mod physical assist to don shirt. Pt unable to locate shirt openings due to decreased vision and apraxia. Performed vision screening, pt unable to consistently track to the right, depth perception impaired, peripheral vision absent to midline on the left and limited to approx. 45 degrees from front midline on the right. Pt left reclined in chair. A: Significant vision/visual perceptual deficits noted during functional activities as well with testing. Pt demonstrates significant apraxia with dressing activity.) Occupational Therapy Problem List: Detail (1. Decreased Ind with grooming/ hygiene. 2. Decreased Ind with total body dressing. 3. Decreased UE AROM, strength and coor needed for safe and Ind self cares. 4. Decreased functional mobility needed for Ind self cares.) Occupational Therapy Goals: 1. Pt will be Ind with grooming/hygiene. 2. Pt will be Ind with total body dressing. 3. Pt will improve UE function to be Ind with self care activities. 4. Pt will be Ind with bed mobility and transfers to allow Ind with self cares. Prognosis: Moderate Occupational Therapy Plan: OT 2-4 days per week to address self cares, functional mobility, UE function and overall endurance.
[2017-03-04] MEDS: [UNRECOGNIZED DRUG - OTHER] OPTH SCH (21:37)
[2017-03-05] MEDS: MELATONIN 5 MG TABLET PO PRN ×2 (00:35→23:20)
[2017-03-05] MEDS: CEPHALEXIN 500 MG CAPSULE PO SCH ×5 (00:36→23:19)
--- NOTE | 2017-03-05 10:38 | Physical Therapy Tx Note ---
Physical Therapy Tx Note - Treatment Note Tolerated: Good Total Time Spent With Patient: 40 Physical Therapy Tx Note: Detail (Pt up in chair upon arrival, awake, alert, cooperative for therapy. Performed 5 reps each of shoulder flexion, abduction, elbow flex/ext, open/close hands; 10 reps each of marching, knee extension, and ankle pumps. Sit/stand at front-wheeled walker w/moderate assist of 2, verbal and tactile cues and physical assist to move feet at times, to walk from chair to toilet, pivot and to sit at toilet. Sit/stand after toilet use w/moderate assist of 2, sat back down to change brief; pt lifted each foot to place through brief. Sit/stand to front wheeled walker to pivot transfer to ; transported to bedside chair and stand pivot transfer w/front wheeled walker to bedside chair. Chair alarm turned on, pt legs covered w/blanket, call light placed in reach, bedside table and drink in reach. Pt's spouse and son arrived at end of session. Pt reported feeling exhausted at end of session.) Physical Therapy Problem List: Detail (1) Assistance with bed mobility and transfer 2) Assistance with ambulatioon and numerous gait deviations 3) Decreased balance in standing 4) Decreased ability to complete prolonged physical activity) Physical Therapy Goals: 1) Assess the patient's balance using Objective balance test. 2) The patient will ambulate with assistive device with CG distances of 30 to 50 feet. 3) The patient will complete bed mobilty independently with upper body and minimal PA lifting LE's. 4) The patient will acheived sit to and from transfer with CG/supervision for safety. 5) The patient will tolerate 30 min. of physical activity Prognosis: Moderate Physical Therapy Plan: PT 1-2 times a day for gait training, transfer training, bed mobilty, LE strengthening and balance exercises.
[2017-03-05] MEDS: APIXABAN 2.5MG TABLET PO SCH ×2 (10:46→23:19)
[2017-03-05] MEDS: ACETAMINOPHEN 500 MG TABLET PO PRN (10:46)
[2017-03-05] MEDS: FLUOXETINE HCL 10 MG CAPSULE PO SCH (10:46)
[2017-03-05] MEDS: METOPROLOL TART 25 MG TABLET PO SCH ×2 (10:49→23:19)
[2017-03-05] MEDS: DORZOLAMIDE 2% OPTH SCH ×2 (10:52→23:21)
[2017-03-05] MEDS: OPTH OPTH SCH ×3 (10:52→23:21)
[2017-03-05] MEDS: FLUOROURACIL 5% TOP SCH ×2 (10:53→23:20)
[2017-03-05] MEDS: COMBIGAN OPTH SCH ×2 (10:53→23:21)
--- NOTE | 2017-03-05 15:45 | Physical Therapy Tx Note ---
Physical Therapy Tx Note - Treatment Note Physical Therapy Tx Note: Detail (Pt in bed upon arrival at 1345; sleepy, not easily arousable. Responded verbally but did not open eyes. Returned at 1530, pt not arousable, sleeping.) Physical Therapy Problem List: Detail (1) Assistance with bed mobility and transfer 2) Assistance with ambulatioon and numerous gait deviations 3) Decreased balance in standing 4) Decreased ability to complete prolonged physical activity) Physical Therapy Goals: 1) Assess the patient's balance using Objective balance test. 2) The patient will ambulate with assistive device with CG distances of 30 to 50 feet. 3) The patient will complete bed mobilty independently with upper body and minimal PA lifting LE's. 4) The patient will acheived sit to and from transfer with CG/supervision for safety. 5) The patient will tolerate 30 min. of physical activity Prognosis: Moderate Physical Therapy Plan: PT 1-2 times a day for gait training, transfer training, bed mobilty, LE strengthening and balance exercises.
[2017-03-05] MEDS: [UNRECOGNIZED DRUG - OTHER] OPTH SCH (23:20)
[2017-03-06] MEDS: CEPHALEXIN 500 MG CAPSULE PO SCH ×2 (07:01→12:29)
--- NOTE | 2017-03-06 10:17 | Rehab Discharge Summary ---
Patient Information - Patient Information Diagnosis: pnemonial, generalized weakness, chronic A-fib Ordered Treatment: PT Evaluate and Treat Surgery: No History: Detail (The patient was previously an inpatient and now is transferred to Swing Bed Unit . The patient has a hisrory of several falls over the past month.) Past Medical/Surgical Hx: PAST MEDICAL/SURGICAL HISTORY Past Surgical History [id number] POSITIVE MALIGNANT SPINDLE CELL NEOPLASM DX 01/2016- HAD SURGICAL INTERVENTION 02/21/2016 AT [facility]; RECONSTRUCTION AND SKIN GRAFT 03/26/2016 Appendectomy, Hernia repair Macular degeneration, Glaucoma PMH - Respiratory Hx Respiratory Disorders No PMH - Cardiovascular Hx Cardiovascular Disorders No Hx Abnormal EKG Afib hx Hx Chest Pain Yes Hx Hypertension Yes Comment: placed on midodrine for irregular blood pressure on 01/30/17 PMH - Neuro Hx Neurological Disorders Yes Hx Parkinson's Disease Yes: son states neurologist does not believe patient has parkinson's Hx Seizures No Hx Syncope Yes Comment: son states neurologist believes poor balance is residual from silent stroke PMH - GI Hx Gastrointestinal Disorders No Hx Gastroesophageal Reflux Yes Hx Irritable Bowel Yes PMH - Hx Genitourinary Disorders Yes Hx Bladder Problem Yes: [place] Comment: frequent urination, urine incontinence PMH - Endocrine Hx Endocrine Disorders No Hx Diabetes No Hx Thyroid Disease No PMH - Musculoskeletal Hx Musculoskeletal Disorders Yes Hx Arthritis Yes Comment: hx right jaw fracture s/p fall 01/01/17 PMH - Psych Hx Psychiatric Problems Yes Hx Depression Yes PMH - Hematology/Oncology Hx Hematology/Oncology Yes Disorders Hx Cancer Yes: bladder Premorbid Status: Detail (The patient was completing mobility with assistance of son.) Social History: Detail (The patient lives with wef and adult son in a 2 story house with basement. He reports 8-10 steps and bilateral handrailing at the enterance from the garage. Another enterance has less steps but is a long walk from the garage. The patient's bedroom is on the second floor, with a bathroom with a walk in shower with grab bars and a tub seat available but not ususally used. The upstairs bathroom also has a standard toilet and grab bars. The patient's was completing laundry and cooking per her report with a workers compensation analyst completing other chores once a week. The patient's son was assisting with bed mobility, transfers and ambulation. The patient's son also reports that the patient's home is not acessible to a walker.) Precautions: [place], Fall - Time With Patient Total Time Spent With Patient (Min): 40 Treatment Procedures: Detail (Gait training, transfer training, and re- evaluation) Subjective Information - Subjective Information Per Patient (The patient states that he is feeling much better today, and he said that he slept about 4 hours last night (more than usual for him).) Objective Data - Pain Pain Present: No - Mental Status Patient Orientation: Oriented x3 - Visual Perception Deficit - ROM Within normal limits - Strength/Tone Other (Same as initial evaluation) - Bed Mobility Needs Assist (Not formally retested, but needed moderate assist for supine to sit, and max assist for scooting in bed.) - Transfers Needs Assist (Sit to stand transfer required minimal assist of 1, but upon standing he required verbal and tactile cues to push his body weight forward, rather than leaning posteriorly. Required minimal assist of 1 for chair to toilet transfer, and required tactile cues for hand placement on grab bars near toilet. Also, need tactile cues for turning the body toward the sitting surface in either direction.) - Balance Balance Sitting: Fair (Scored 2/28 on the [place], which places him in the high risk category for a fall.) Balance Standing: Poor - Gait Detail (Today, the patient ambulated 13 feet with contact guard assist of 2. The patient did not require tactile cues for turning his walker. Previously, the patient's ability to ambulate has fluctuated greatly, some days requiring mod. to max assist of 1 for ambulation and turning his walker. His distances varied quite a bit, as he was only able to stand briefly earlier this week. He tends to shuffle his feet with a forward lean, but trunk lean is slightly corrected with verbal cues.) Therapy Assessment - Therapy Assessment Detail (The patient's status tends to fluctuate with his ability to sleep at night. On this date, he required minimal assist for ambulation and transfer training, but previously required mod. to max assist for those activities. The patient also tends to fatigue quickly with exercise, and needs to have activities paced properly.) Problem List - Problem List Physical Therapy Problem List: Detail (1) Assistance with bed mobility and transfer 2) Assistance with ambulation and numerous gait deviations 3) Decreased balance in standing 4) Decreased ability to complete prolonged physical activity) Occupational Therapy Problem List: Detail (1. Decreased Ind with grooming/ hygiene. 2. Decreased Ind with total body dressing. 3. Decreased UE AROM, strength and coor needed for safe and Ind self cares. 4. Decreased functional mobility needed for Ind self cares.) Goals - Goals Physical Therapy Goals: 1) Assess the patient's balance using Objective balance test - MET. 2) The patient will ambulate with assistive device with CG distances of 30 to 50 feet - PARTIALLY MET. 3) The patient will complete bed mobilty independently with upper body and minimal PA lifting LE's - NOT MET. 4 ) The patient will acheived sit to and from transfer with CG/supervision for safety. 5) The patient will tolerate 30 min. of physical activity Occupational Therapy Goals: 1. Pt will be Ind with grooming/hygiene. 2. Pt will be Ind with total body dressing. 3. Pt will improve UE function to be Ind with self care activities. 4. Pt will be Ind with bed mobility and transfers to allow Ind with self cares. Plan - Plan Physical Therapy Plan: Patient is transferring to a intermediate care/rehab facility this afternoon (03/06) where he will continue PT and OT services. Occupational Therapy Plan: OT 2-4 days per week to address self cares, functional mobility, UE function and overall endurance.
[2017-03-06] MEDS: APIXABAN 2.5MG TABLET PO SCH (10:39)
[2017-03-06] MEDS: METOPROLOL TART 25 MG TABLET PO SCH (10:40)
[2017-03-06] MEDS: FLUOXETINE HCL 10 MG CAPSULE PO SCH (10:40)
[2017-03-06] MEDS: OPTH OPTH SCH (10:43)
[2017-03-06] MEDS: DORZOLAMIDE 2% OPTH SCH (10:43)
[2017-03-06] MEDS: FLUOROURACIL 5% TOP SCH (10:43)
[2017-03-06] MEDS: COMBIGAN OPTH SCH (10:43)
--- NOTE | 2017-03-06 11:15 | Rehab Discharge Summary ---
Patient Information - Patient Information Diagnosis: deconditioning due to pneumonia Ordered Treatment: OT Evaluate and Treat Surgery: No Past Medical/Surgical Hx: PAST MEDICAL/SURGICAL HISTORY Past Surgical History [id number] POSITIVE MALIGNANT SPINDLE CELL NEOPLASM DX 01/2016- HAD SURGICAL INTERVENTION 02/21/2016 AT [facility]; RECONSTRUCTION AND SKIN GRAFT 03/26/2016 Appendectomy, Hernia repair Macular degeneration, Glaucoma PMH - Respiratory Hx Respiratory Disorders No PMH - Cardiovascular Hx Cardiovascular Disorders No Hx Abnormal EKG Afib hx Hx Chest Pain Yes Hx Hypertension Yes Comment: placed on midodrine for irregular blood pressure on 01/30/17 PMH - Neuro Hx Neurological Disorders Yes Hx Parkinson's Disease Yes: son states neurologist does not believe patient has parkinson's Hx Seizures No Hx Syncope Yes Comment: son states neurologist believes poor balance is residual from silent stroke PMH - GI Hx Gastrointestinal Disorders No Hx Gastroesophageal Reflux Yes Hx Irritable Bowel Yes PMH - Hx Genitourinary Disorders Yes Hx Bladder Problem Yes: [place] Comment: frequent urination, urine incontinence PMH - Endocrine Hx Endocrine Disorders No Hx Diabetes No Hx Thyroid Disease No PMH - Musculoskeletal Hx Musculoskeletal Disorders Yes Hx Arthritis Yes Comment: hx right jaw fracture s/p fall 01/01/17 PMH - Psych Hx Psychiatric Problems Yes Hx Depression Yes PMH - Hematology/Oncology Hx Hematology/Oncology Yes Disorders Hx Cancer Yes: bladder Premorbid Status: Detail (Pt lives with and adult son in a 2 story house with basement. He reports having 8-10 steps with víctor handrailings at the entrance from the basement garage and 3 steps at the front entrance which is a long distance from the driveway. His bedroom and bathroom are on the second floor. In the upper level bathroom is a walk in shower with grab bar and standard height toilet with grab bar, on the lower level is a tub/shower combination. His completes laundry and they have a sheep killer 1 x per week, son completes all driving and assists pt with showering, dressing and other self care activities as needed. He has a shower seat and wheeled walker but usually walks without an assistive device.) Social History: Detail (Supportive son and .) Precautions: [place], Fall Subjective Information - Subjective Information Per Patient Objective Data - Pain Pain Present: No - Mental Status Patient Orientation: Person, Place - Visual Perception Appears within normal limits for therapeutic activities (Pt wears glasses, upon screening and per observation during functional activities pt has some depth perception and visual field deficits.) - ROM Not within normal limits (Víctor shoulder flexion limited to approx. 80 degrees, remaining UE AROM functional for pts level of activity.) - Strength/Tone Not within normal limits (Víctor UE strength 3+/5 to 4/5 throughout.) - Coordination Deficit (Pt presents with impaired coordination during self care activities.) - Bed Mobility Needs Assist (Variable depending on fatigue, mod assist x 1 at best, max assist x 1 at worst.) - Transfers Needs Assist (Mod assist x 1 for sit to stand) - Balance Balance Sitting: Fair Balance Standing: Poor - Sensation Intact - Gait Detail (Pt inconsistently able to amb short distances with 2 wheeled walker and min to mod assist x 2.) - ADL's/IADL's Detail (Max assist for dressing, grooming/hygiene activities.) Therapy Assessment - Therapy Assessment Detail (Pt presents with significant impairments with self cares and functional mobility as well as decreased UE function and visual perceptual deficits.) Problem List - Problem List Physical Therapy Problem List: Detail (1) Assistance with bed mobility and transfer 2) Assistance with ambulation and numerous gait deviations 3) Decreased balance in standing 4) Decreased ability to complete prolonged physical activity) Occupational Therapy Problem List: Detail (1. Decreased Ind with grooming/ hygiene. 2. Decreased Ind with total body dressing. 3. Decreased UE AROM, strength and coor needed for safe and Ind self cares. 4. Decreased functional mobility needed for Ind self cares.) Goals - Goals Physical Therapy Goals: 1) Assess the patient's balance using Objective balance test - MET. 2) The patient will ambulate with assistive device with CG distances of 30 to 50 feet - PARTIALLY MET. 3) The patient will complete bed mobilty independently with upper body and minimal PA lifting LE's - NOT MET. 4 ) The patient will acheived sit to and from transfer with CG/supervision for safety. 5) The patient will tolerate 30 min. of physical activity Occupational Therapy Goals: Goals not met: 1. Pt will be Ind with grooming/ hygiene. 2. Pt will be Ind with total body dressing. 3. Pt will improve UE function to be Ind with self care activities. 4. Pt will be Ind with bed mobility and transfers to allow Ind with self cares. Prognosis - Prognosis Moderate Plan - Plan Physical Therapy Plan: Patient is transferring to a ferry terminal agent care/rehab facility this afternoon (03/06) where he will continue PT and OT services. Occupational Therapy Plan: Pt is transferring to LTC with continued OT/PT services.
--- NOTE | 2017-03-06 12:01 | Discharge Summary ---
Providers Discharge Summary Date: 03/06/17 Date of admission: 02/27/17 18:09 Expected Date of Discharge: 03/06/17 Attending physician: Saleem Kennedy Primary care physician: Ash Bond Physical Exam - Vital Signs Vital Signs: Vital Signs - Last 24 Hrs Temp Pulse Resp BP BP Pulse Ox 03/06/17 07:38 97.8 F 70 18 158/99 94 L 03/05/17 20:00 97.6 F 67 18 148/78 98 03/05/17 12:41 97.3 F L 153/81 - General General Appearance: Alert, Oriented x3, Cooperative, No acute distress - Head Head exam: Normal inspection - Eye Eye exam: Normal appearance, PERRL Pupils: Normal accommodation - ENT ENT exam: Normal exam, Mucous membranes moist, Normal external ear exam, Normal orophraynx, TM's normal bilaterally Ear exam: Normal external inspection. negative: External canal tenderness Nasal Exam: Normal inspection. negative: Discharge, Sinus tenderness Mouth exam: Normal external inspection, Tongue normal Teeth exam: Normal inspection. negative: Dental caries Throat exam: Normal inspection. negative: Tonsillar erythema, Tonsillar exudate - Neck Neck exam: Normal inspection, Full ROM. negative: Tenderness - Respiratory Respiratory exam: Normal lung sounds bilaterally. negative: Respiratory distress - Cardiovascular Cardiovascular Exam: Regular rate, Normal rhythm, Normal heart sounds - GI/Abdominal GI/Abdominal exam: Soft, Normal bowel sounds. negative: Tenderness - Rectal Rectal exam: Deferred - exam: Deferred - Extremities Extremities exam: Normal inspection, Full ROM, Normal capillary refill. negative: Tenderness - Back Back exam: Reports: Normal inspection, Full ROM. Denies: Muscle spasm, Rash noted, Tenderness - Neurological Neurological exam: Alert, Normal gait, Oriented X3, Reflexes normal - Psychiatric Psychiatric exam: Normal affect, Normal mood - Skin Skin exam: Dry, Intact, Normal color, Warm Hospitalization - Hospitalization Admission Diagnosis: Deconditioning d/t LLL Pneumonia. atrial fib on eliquis - Problem List (1) Physical deconditioning Current Visit: No Status: Acute Base Code: R53.81 - OTHER MALAISE Comment : 02/23/17- acute on chronic worsening of generalized weakness. Son is primary caregiver for patient and patient's who has dementia. Son has been having some difficulty taking care of his father due to his own medical condition. Says he has really noticed increasing weakness in the past week and over the course of this year patient has had at least 50 falls. -PT/OT evaluated patient and feel he would benefit from inpatient rehab followed by subacute stay and then possibly transitioning to long term care social worker care facility. -SW spoke with family today and [facility] and they are going to start looking at terminal operator care facilities. (2) Hypertension Current Visit: No Status: Acute Base Code: I10 - ESSENTIAL (PRIMARY) HYPERTENSION (3) Pneumonia Current Visit: No Status: Acute Base Code: J18.9 - PNEUMONIA, UNSPECIFIED ORGANISM Comment: 02/23/17- CXR 02/22/17 showing probable left lower lobe infiltrate. Patient reports no cough or shortness of breath but has had increased weakness and some chills. appetite remains good and he is not requiring supplemental oxygen -continue rocephin 1gm IV q24h -continue azithromycin 500mg PO daily -duoneb q4H prn shortness of breath -vitals q8H -repeat labs qam (4) Atrial fibrillation Current Visit: Yes Status: Acute Base Code: I48.91 - UNSPECIFIED ATRIAL FIBRILLATION Discharge Medications - Discharge Medications Prescriptions: Melatonin 5 mg PO QHS PRN #30 tablet PRN Reason: Sleep Cephalexin [Keflex] 500 mg PO Q6HR #4 capsule Apixaban [Eliquis] 2.5 mg PO BID #60 tablet Metoprolol Tartrate [Lopressor] 12.5 mg PO BID #60 tab Home Medications: Ambulatory Orders Apixaban [Eliquis] 2.5 mg PO BID 12/30/16 [Last Taken 02/22/17] Brimonidine Tartrate/Timolol [Combigan 0.2%-0.5% Eye Drops] 5 ml OP BID [Last Taken 02/22/17] Dorzolamide HCl 10 ml OP BID 12/30/16 [Last Taken 02/22/17] Fluoxetine HCl 10 mg PO DAILY 12/30/16 [Last Taken 02/22/17] Latanoprost 0.005% Opth Chelsey [Xalatan] 2.5 ml OP DAILY 12/30/16 [Last Taken 02/22] Omeprazole Magnesium [Prilosec Otc] 10 mg PO ASDIR 12/30/16 [Last Taken 02/22/17 ] Acetaminophen [Tylenol 500Mg Tab] 500 mg PO Q6H PRN tablet 02/27/17 [Last Taken Unknown] Calcium Carbonate [Tums] 500 mg PO Q4H PRN tab.chew 02/27/17 [Last Taken Unknown] Metoprolol Tartrate [Lopressor] 12.5 mg PO BID tab 02/27/17 [Last Taken Unknown ] Zinc Oxide [Desitin] 28.35 gm TOP BID PRN tube 02/27/17 [Last Taken Unknown] Acetaminophen [Tylenol 500Mg Tab] 500 mg PO Q6H PRN tablet 03/06/17 [Last Taken Unknown] Apixaban [Eliquis] 2.5 mg PO BID #60 tablet 03/06/17 [Last Taken Unknown] Calcium Carbonate [Tums] 500 mg PO Q4H PRN tab.chew 03/06/17 [Last Taken Unknown] Cephalexin [Keflex] 500 mg PO Q6HR #4 capsule 03/06/17 [Last Taken Unknown] Melatonin 5 mg PO QHS PRN #30 tablet 03/06/17 [Last Taken Unknown] Metoprolol Tartrate [Lopressor] 12.5 mg PO BID #60 tab 03/06/17 [Last Taken Unknown] Zinc Oxide [Desitin] 28.35 gm TOP BID PRN tube 03/06/17 [Last Taken Unknown] Discharge Plan - Discharge Instructions Activity at Discharge: Increase Activity as Tolerated Diet at Discharge: Low Salt Diet Additional Instructions: follow up with Dr. Bond after leaving [facility] Quality Measures - Quality Measures Quality Measures: Atrial Fibrillation & Atrial Flutter: Chronic Anticoagulation Therapy, Advance Directives, Documentation of Current Medications in Medical Record, Elder Maltreatment Screen and Follow-Up Plan, Screening for High Blood Pressure and F/U Documented - Current Medications Quality Measure: Measure #130: Documentation of Current Medications Documentation of Current Medications: <Current Medications Documented/Reviewed> [G8427] - Blood Pressure Screening Quality Measure: Screening for High Blood Pressure and Follow-Up Documented Does Patient Have Any of the Following: Active Dx of HTN Blood Pressure Classification: Pre-Hypertensive BP Reading Systolic Measurement: 153 Diastolic Measurement: 81 Screening for High Blood Pressure: Patient Exclusion, Hx of HTN [G9744] - Atrial Fibrillation and Atrial Flutter Quality Measure: Atrial Fibrillation & Atrial Flutter: Chronic Anticoagulation Therapy Does Patient Have Any of the Following: No CHADS2 Risk Stratification: Age 75 or Greater, Hypertension Risk Stratification Summary: One or more high risk factors OR more than one moderate risk factor exists. [V6164] Anticoagulation Therapy: <Oral anticoagulant Prescribed> [D8747] - Advance Directives Quality Measure: Measure #47: Care Plan Advance Directives Established: Yes Advance Directives Information Provided To Patient: No Advance Directives on File: No Living Will: Yes Power of Mat Roller: Yes Power of Mat Roller Name: norm barbosa Advance Care Planning: <Care Plan/Decision Maker Documented; Discussed & Documented> [5733F] - Elder Abuse Suspicion Index Screening: Elder Abuse Suspicion Index Screening Rely on people for bathing, dressing, shopping, banking, etc: No Prevented from getting food, clothes, medication, etc: No Made to feel shamed or threatened by someone: No Forced to sign papers or use money against will: No Feel afraid, touched in ways not wanted or hurt physically: No Poor eye contact, withdrawn, malnourished, cuts or bruises: No Screening Result: Negative result EASI Reference Information: Nani YUNG, Jozef C, Freeman D, Estephania Noland.Development and validation of a tool to assist physicians identification of elder abuse: The Elder Abuse Suspicion Index (EASI ). Journal of Elder Abuse and Neglect, 2008; 20 (3): 276-300. - Elder Maltreatment Screen Quality Measures: Elder Maltreatment Screen and Follow-Up Plan Elder Maltreatment Screen: <Negative, No Follow-Up Plan Required> [Q1341]
[2017-03-06] MEDS: ACETAMINOPHEN 500 MG TABLET PO PRN (13:20)
== END 2017-03-06 13:39 | DRG 948 ==
LOC: MEDSURG 02-27 18:09
PROVIDERS: ADMIT Emergency Medicine; ATTEND Emergency Medicine
DX: R53.81 Other malaise (principal); I48.91 Unspecified atrial fibrillation; I10 Essential (primary) hypertension; Z79.01 Long term (current) use of anticoagulants; Z87.891 Personal history of nicotine dependence; H35.30 Unspecified macular degeneration; Z85.51 Personal history of malignant neoplasm of bladder
CPT/HCPCS: 81003; 97110; 97165; 97530; 97535; 99223

== ENCOUNTER 2017-05-06 16:42 | Emergency (ER) | payer MEDICARE, MEDICAID ==
[2017-05-06 17:06] LABS: BASO % 0.1 % (0-6); EOS % 0.3 % (0-6); GRAN % 70.4 % (47-80); HEMATOCRIT 42.3 % (42.0-52.0); HEMOGLOBIN 14.5 gm/dl (14.0-18.0); LYMPH % 17.4 % (16-45); MEAN CELL VOLUME 88.9 fl (81-97); MEAN CORPUSCULAR HEMOGLOBIN 30.5 pg (27-33); MEAN CORPUSCULAR HGB CONC 34.3 g/dl (32-36); MEAN PLATELET VOLUME 10.4 fl (7.4-10.4); MONO % 11.8 % (0-9); PLATELET COUNT 191 K/uL (130-400); RED BLOOD COUNT 4.76 M/uL (4.40-5.70); RED CELL DISTRIBUTION WIDTH 14.2 % (11.5-14.5); WHITE BLOOD COUNT W/O DIFF 9.1 K/uL (4.2-12.2)
--- NOTE | 2017-05-06 17:13 | Emergency Department Record ---
History of Present Illness - General Chief complaint: Weakness Stated complaint: WEAKNESS Time Seen by Provider: 05/06/17 17:07 Source: Patient Mode of Arrival: Wheelchair Limitations: No limitations - History of Present Illness Initial comments: 86 yo male presents to ED for evaluation of increased fatigue and weakness x 1 days. Son at the bedside provides the majority of the history obtained, reports that he was started on Risperdone yesterday for depression and intermittent agitation. Son denies any recent fevers, chills, cough, or head injury symptoms. Son denies focal weakness on examination. MD Complaint: Generalized weakness Onset/Timin -: Hour(s) Location: Generalized Severity: Moderate Consistency: Constant Improves with: None Worsens with: None Context: New medication Associated Symptoms: Other - María Elena Coma Scale Eye Response: (4) Open spontaneously Motor Response: (6) Obeys commands Verbal Response: (5) Oriented María Elena Total: 15 - Related Data Previous Rx's Medication Instructions Recorded Metoprolol Tartrate [Lopressor] 12.5 mg PO BID tab 02/27/17 Acetaminophen [Tylenol 500Mg Tab] 500 mg PO Q6H PRN tablet 03/06/17 Apixaban [Eliquis] 2.5 mg PO BID #60 tablet 03/06/17 Melatonin 5 mg PO QHS PRN #30 tablet 03/06/17 Cephalexin [Keflex] 500 mg PO QID #28 cap 05/06/17 Allergies Allergy/AdvReac Type Severity Reaction Status Date / Time No Known Drug Allergies Allergy Verified 02/22/17 18:50 Travel Screening - Travel/Exposure Within Last 30 Days Have you traveled within the last 30 days?: No - Additonal Travel Details Have you been exposed to anyone with a communicable illness?: No Review of Systems Constitutional: Reports: Malaise, Weakness. Denies: Chills, Fever, Night sweats Eyes: Denies: Eye discharge ENT: Denies: Congestion Respiratory: Denies: Cough, Dyspnea Cardiovascular: Denies: Dyspnea on exertion, Edema Endocrine: Reports: Fatigue. Denies: Heat or cold intolerance Gastrointestinal: Denies: Abdominal pain, Vomiting Genitourinary: Denies: Incontinence, Retention Musculoskeletal: Denies: Arthralgia, Back pain Skin: Denies: Bruising, Change in color Neurological: Reports: Weakness. Denies: Headache Psychiatric: Denies: Anxiety Hematological/Lymphatic: Reports: Easy bleeding, Easy bruising Past Medical History - SOCIAL HISTORY Smoking Status: Former smoker Alcohol Use: None Drug Use: None - RESPIRATORY Hx Respiratory Disorders: No - CARDIOVASCULAR Hx Cardio Disorders: No Hx Abnormal EKG: (Afib hx) Hx Chest Pain: Yes Hx Hypertension: Yes Comment:: placed on midodrine for irregular blood pressure on 01/30/17 - NEURO Hx Neuro Disorders: Yes Hx Seizures: No - GI Hx GI Disorders: No Hx Reflux: Yes Hx Irritable Bowel: Yes - Hx Genitourinary Disorders: Yes Hx Bladder Problem: Yes ([place]) Comment:: frequent urination, urine incontinence - ENDOCRINE Hx Endocrine Disorders: No Hx Diabetes: No - MUSCULOSKELETAL Hx Musculoskeletal Disorders: Yes Hx Arthritis: Yes Comment:: hx right jaw fracture s/p fall 01/01/17 - PSYCH Hx Psych Problems: Yes Hx Depression: Yes - HEMATOLOGY/ONCOLOGY Hx Hematology/Oncology Disorders: Yes Hx Cancer: Yes (bladder) Family Medical History Any Significant Family History?: No Family Hx Comment (NOT TO BE USED IN PLACE OF ITEMS BELOW): unknown Physical Exam - General General Appearance: Other (Drowsy on examination, but awakens to voice, follows commands, no focal weakness on examination to suggest CVA) Limitations: No limitations - Head Head exam: Atraumatic, Normocephalic, Normal inspection Head exam detail: negative: Abrasion, Contusion, Post's sign, General tenderness, Hematoma, Laceration - Eye Eye exam: Normal appearance. negative: Conjunctival injection, Periorbital swelling, Periorbital tenderness, Scleral icterus - ENT Ear exam: negative: Auricular hematoma, Auricular trauma Nasal Exam: negative: Active bleeding, Discharge, Dried blood, Foreign body Mouth exam: negative: Drooling, Laceration, Muffled voice, Tongue elevation - Neck Neck exam: Normal inspection. negative: Meningismus, Tenderness - Respiratory Respiratory exam: Normal lung sounds bilaterally. negative: Respiratory distress, Rhonchi, Stridor, Wheezes - Cardiovascular Cardiovascular Exam: Normal heart sounds, Irregular rhythm - GI/Abdominal GI/Abdominal exam: Soft. negative: Rebound, Rigid, Tenderness - Rectal Rectal exam: Deferred - exam: Deferred - Extremities Extremities exam: Normal inspection. negative: Pedal edema, Tenderness - Back Back exam: Denies: CVA tenderness (R), CVA tenderness (L) - Neurological Neurological exam: Alert, Oriented X3. negative: Motor sensory deficit - Psychiatric Psychiatric exam: Normal affect, Normal mood - Skin Skin exam: Normal color. negative: Abrasion Type of lesion: negative: abrasion Course Vital Signs 05/06/17 16:45 Temperature 98 F Pulse Rate 67 Respiratory 16 Rate Blood Pressure 164/81 Pulse Ox 100 - Reevaluation(s) Reevaluation #1: 05/06/17 17:08 EKG: Atrial Fibrillation, 65 Normal axis, irregular R-R No acute ST-T wave changes No significant change from 02/22/17 Reevaluation #2: 05/06/17 18:14 Labs reviewed and are grossly unremarkable for an acute process. UA: 3-6 RBCs 21-35 WBCs 4+ Bacteria Rocephin ordered to infuse at this time. Reevaluation #3: 05/06/17 18:19 CXR: Chronic changes, nothing acute CT Brain: Chronic changes, no acute process Patient and his son were updated on all results and the plan for an IV dose of antibiotics for his UTI, recommended admission for observation until improved. Patient's son would prefer the patient to go back to [facility] tonight, will finish infusion of Rocephin and discharge the patient back to [facility] with instructions to return to ED in 12-24 hours if his fatigue does not significantly improve. Patient's son verbalizes understanding of all instructions, and the patient does appear otherwise stable for a trial of outpatient treatment for his UTI. Medical Decision Making - Lab Data Result diagrams: 05/06/17 16:50 05/06/17 16:50 Disposition Disposition: Discharge Clinical Impression: UTI (urinary tract infection) Qualifiers: Urinary tract infection type: acute cystitis Hematuria presence: without hematuria Qualified Code(s): N30.00 - Acute cystitis without hematuria Fatigue Qualifiers: Fatigue type: unspecified Qualified Code(s): R53.83 - Other fatigue Disposition: Home, Self-Care Condition: (2) Stable Instructions: Urinary Tract Infection in Men (ED) Additional Instructions: Return to ED if your symptoms are not significantly improved in 12-24 hours as discussed. Keflex as directed. Follow-up with Dr. Kennedy in 1-3 days as directed. Prescriptions: Cephalexin [Keflex] 500 mg PO QID #28 cap Forms: Patient Portal Access Time of Disposition: 18:55 Quality - Quality Measures Quality Measures: N/A - Blood Pressure Screening Does Patient Have Any of the Following: No Blood Pressure Classification: Pre-Hypertensive BP Reading Systolic Measurement: 151 Diastolic Measurement: 87 Screening for High Blood Pressure: < Pre-Hypertensive BP, F/U Documented > [ [id number]] Pre-Hypertensive Follow-up Interventions: Referral to alternative/primary care provider.
[2017-05-06 17:18] LABS: BLOOD UREA NITROGEN 22 mg/dL (8-23); CREATININE 0.8 mg/dL (0.7-1.2); EST GLOMERULAR FILTRATION RATE > 60 mL/min
[2017-05-06 17:21] LABS: GLUCOSE,RANDOM 153 mg/dL (74-109)
[2017-05-06 17:23] LABS: INR 1.1; PARTIAL THROMBOPLASTIN TIME 32.5 SECONDS (24.5-39.1); PROTHROMBIN TIME (PATIENT) 11.8 SECONDS (9.5-12.1)
[2017-05-06 17:24] LABS: CREATINE PHOSPHOKINASE 52 U/L (39-308)
[2017-05-06 17:26] LABS: CKMB 1.5 ng/mL (<6.73)
[2017-05-06 18:00] LABS: URINE APPEARANCE SL CLOUDY; URINE BILIRUBIN NEGATIVE (NEGATIVE); URINE BLOOD TRACE-I (NEGATIVE); URINE GLUCOSE (UA) NEGATIVE (NEGATIVE); URINE KETONE NEGATIVE (NEGATIVE); URINE LEUKOCYTE ESTERASE SMALL (NEGATIVE); URINE NITRITE POSITIVE (NEGATIVE); URINE PROTEIN TRACE (NEGATIVE)
[2017-05-06 18:02] LABS: URINE COLOR DARK YELLOW
[2017-05-06 18:10] LABS: URINE BACTERIA 4+; URINE EPITHELIAL CELLS NONE SEEN (FEW); URINE WBC 21 - 35 (0-2/hpf)
[2017-05-06] MEDS: CEFTRIAXONE SODIUM 1 GM in 0.9 % SODIUM CHLORIDE 100ML 100 ML IVPB ONE (18:28)
--- NOTE | 2017-05-07 13:04 | RADIOLOGY REPORT ---
EXAM: CHEST, TWO VIEWS HISTORY: ALTERED LEVEL OF CONSCIOUSNESS, DECREASED LEVEL OF CONSCIOUSNESS WITH WEAKNESS. TECHNIQUE: AP sitting and lateral views of the chest were obtained. Comparison: Two view chest 02/22/17. FINDINGS: Mild cardiomegaly. Torsion of the aorta. No definite acute infiltrate seen. No pleural effusion or pneumothorax evident. IMPRESSION: MILD CARDIOMEGALY. CALCIFICATION AND TORSION OF THE AORTA. NO DEFINITE ACUTE INFILTRATE SEEN. JOB NUMBER: [id number] [facility]TDD
--- NOTE | 2017-05-07 13:08 | CT SCAN REPORT ---
EXAM: EMERGENCY HEAD CT WITHOUT CONTRAST HISTORY: ALTERED LEVEL OF CONSCIOUSNESS, DECREASED LEVEL OF CONSCIOUSNESS, WEAKNESS. TECHNIQUE: Axial CT scan of the head was performed without IV contrast. Comparison: Head CT dated 02/22/17. FINDINGS: No definite acute intracranial hemorrhage identified. No focal mass effect or midline shift apparent. 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 No definite acute infarct or intracranial mass lesion identified. No depressed calvarial fracture is evident. IMPRESSION: 1. GENERALIZED ATROPHY WITH CHRONIC APPEARING DEEP WHITE MATTER CHANGES BEFORE. 2. NO DEFINITE ACUTE INTRACRANIAL HEMORRHAGE OR FOCAL MASS EFFECT IDENTIFIED. JOB NUMBER: [id number] [facility]
== END 2017-05-06 19:22 | disposition home or self-care (01) ==
LOC: ER 16:42
DX: N30.00 Acute cystitis without hematuria (principal); R53.1 Weakness; R53.83 Other fatigue; I10 Essential (primary) hypertension; I48.91 Unspecified atrial fibrillation; Z87.891 Personal history of nicotine dependence; Z79.01 Long term (current) use of anticoagulants
CPT/HCPCS: 70450; 71046; 80048; 81001; 82550; 82553; 83605; 84484; 85025; 85610; 85730; 93005; 93010; 96365; 99284